=== PATIENT | male | born 1950 | race African-American/Black ===

== ENCOUNTER 2017-08-21 12:01 | Inpatient (IN) | payer MEDICARE, MEDICAID ==
[~2017-08-21] VITALS: Ht 175.3 cm; Wt 106.1 kg
[2017-08-21] VITALS (7 sets, daily range): BP systolic 108–159; BP diastolic 51–90
[~2017-08-21 12:01] MED LIST: ASPIRIN325 MG ORAL; GABAPENTIN400 MG ORAL; IBUPROFEN800 MG ORAL; LOVENOX10 MG SUBQ; MELATONIN3 M2 PO; NORCO 5-325 TA1 EAC1 ORAL; NORCO 5-325 TA1 EACH ORAL; VANCO 1.251.25 GM/25 IV; ZOSYN 3.373.375 GM/1 IVPB
[2017-08-21] MEDS ORDERED: Morphine Sulfate 4mg/ml Inj IVP ONE (12:30)
[2017-08-21 13:05] LABS: HEMATOCRIT 38.6 % (42.0-52.0); HEMOGLOBIN 13.1 G/DL (14.2-18.0); MEAN CORPUSCULAR VOLUME 91 FL (80-99); PLATELET COUNT 203 K/UL (150-450); RED BLOOD COUNT 4.22 M/UL (4.70-6.10); RED CELL DISTRIBUTION WIDTH 13.4 % (11.6-14.8); WHITE BLOOD COUNT 23.1 K/UL (4.8-10.8)
[2017-08-21] MEDS ORDERED: Vancomycin 1 GM in D5W 275 ML IVPB ONE (13:15)
[2017-08-21 13:19] LABS: APPEARANCE,URINE CLEAR; BILIRUBIN, URINE NEGATIVE (NEGATIVE); GLUCOSE, URINE (UA) NEGATIVE (NEGATIVE); KETONES,URINE NEGATIVE (NEGATIVE); LEUKOCYTE ESTERASE ,URINE 1+ (NEGATIVE); NITRITE,URINE NEGATIVE (NEGATIVE); PH,URINE 5 (4.5-8.0); PROTEIN,URINE NEGATIVE (NEGATIVE); UROBILINOGEN,URINE 4 MG/DL (0.0-1.0)
[2017-08-21 13:26] LABS: COLOR,URINE YELLOW
[2017-08-21 13:31] LABS: ANION GAP 10 mmol/L (5-15); BLOOD UREA NITROGEN 26 mg/dL (7-18); CALCIUM 9.8 MG/DL (8.5-10.1); CARBON DIOXIDE 25 MMOL/L (21-32); CHLORIDE 101 MMOL/L (98-107); CREATININE 1.5 MG/DL (0.55-1.30); POTASSIUM 4.4 MMOL/L (3.5-5.1); SODIUM 136 MMOL/L (136-145)
[2017-08-21] MEDS ORDERED: Vancomycin 1gm inj IVPB ONE (13:51)
[2017-08-21 13:55] LABS: ALANINE AMINOTRANSFERASE 52 U/L (12-78); ALBUMIN/GLOBULIN RATIO 0.9 (1.0-2.7); ALKALINE PHOSPHATASE 88 U/L (46-116); ASPARTATE AMINO TRANSFERASE 45 U/L (15-37); BILIRUBIN,TOTAL 1.5 MG/DL (0.2-1.0); CREATINE KINASE 333 U/L (26-308)
[2017-08-21 13:56] LABS: BILIRUBIN,DIRECT 0.3 MG/DL (0.0-0.3)
[2017-08-21] MEDS ORDERED: HYDROmorphone 1mg/ml Carpuject IVP ONE (14:45)
[2017-08-21] MEDS ORDERED: Cefepime HCl 1 GM in D5W 55 ML IVPB ONE (14:45)
--- NOTE | 2017-08-21 15:37 | Emergency Room Report ---
History of Present Illness General Chief Complaint: Fever Source: Patient, EMS Present Illness HPI Patient presents with fever. Minimal cough yesterday but saw the phlegm but did not note color. In addition he has severe right ankle pain post titanium placement for an ankle fracture. 9/10, constant, worse when ankle dependent, radiates slightly to mid lower leg, aching. He denies any changes in the skin at this time. Also denies nausea vomiting diarrhea or dysuria. Apparently has had cellulitis in R lower leg in the past. No ANAND, sore throat, abdominal pain, chest pain. Allergies: Coded Allergies: No Known Allergies (Unverified , 12/24/15) Patient History Past Medical History: see triage record Past Surgical History: other - R ankle surgery Social History: Reports: smoking Social History Narrative at assisted living/rehab Reviewed Nursing Documentation: PMH: Agreed, PSxH: Agreed Nursing Documentation-PMH Hx Cardiac Problems: No Hx Cancer: No Hx Gastrointestinal Problems: No Review of Systems All Other Systems: negative except mentioned in HPI Physical Exam Vital Signs Date Time Temp Pulse Resp B/P (MAP) Pulse Ox O2 Delivery O2 Flow Rate FiO2 08/21/17 11:54 98.8 100 16 110/74 94 Room Air Sp02 EP Interpretation: reviewed, abnormal - interpreted as low by me General Appearance: well appearing, no apparent distress, GCS 15 Head: normocephalic Eyes: bilateral eye normal inspection, bilateral eye PERRL ENT: moist mucus membranes Neck: supple, no bony tend Respiratory: lungs clear, normal breath sounds Cardiovascular #1: regular rate, rhythm Cardiovascular #2: 2+ radial (R) Gastrointestinal: normal inspection, normal bowel sounds, non tender, no mass, non-distended Musculoskeletal: back normal, swelling - R ankle-post surgical changes Neurologic: alert, oriented x3, 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 Ddx: pneumonia, bronchitis, cellulitis, osteomyelitis amongst others. Evaluation with EKG, CXR, R ankle x-rays, labs. Treatment with hydration and consideration for antibiotics based on results. Treated for pain. EKG without injury. CXR no infiltrate. WBC elevated. ESR elevated. Renal insufficiency. Normal lactate. IV antibiotics started to cover possible osteo. Repeat pain medicine. Improved with treatment. Needs continued IV antibiotics and evaluation. Admit barry [place] Laboratory Tests Test 08/21/17 12:35 08/21/17 12:55 White Blood Count 23.1 K/UL (4.8-10.8) *H Red Blood Count 4.22 M/UL (4.70-6.10) L Hemoglobin 13.1 G/DL (14.2-18.0) L Hematocrit 38.6 % (42.0-52.0) L Mean Corpuscular Volume 91 FL (80-99) Mean Corpuscular Hemoglobin 31.1 PG (27.0-31.0) H Mean Corpuscular Hemoglobin Concent 34.0 G/DL (32.0-36.0) Red Cell Distribution Width 13.4 % (11.6-14.8) Platelet Count 203 K/UL (150-450) Mean Platelet Volume 8.8 FL (6.5-10.1) Neutrophils (%) (Auto) % (45.0-75.0) Lymphocytes (%) (Auto) % (20.0-45.0) Monocytes (%) (Auto) % (1.0-10.0) Eosinophils (%) (Auto) % (0.0-3.0) Basophils (%) (Auto) % (0.0-2.0) Differential Total Cells Counted 100 Neutrophils % (Manual) 80 % (45-75) H Lymphocytes % (Manual) 10 % (20-45) L Monocytes % (Manual) 9 % (1-10) Eosinophils % (Manual) 1 % (0-3) Basophils % (Manual) 0 % (0-2) Band Neutrophils 0 % (0-8) Platelet Estimate Adequate Platelet Morphology Normal Red Blood Cell Morphology Normal Erythrocyte Sedimentation Rate 43 MM/HR (0-20) H Prothrombin Time 10.9 SEC (9.30-11.50) Prothrombin Time INR 1.0 (0.9-1.1) PTT 29 SEC (23-33) Urine Color Yellow Urine Appearance Clear Urine pH 5 (4.5-8.0) Urine Specific [place] 1.015 (1.005-1.035) Urine Protein Negative (NEGATIVE) Urine Glucose (UA) Negative (NEGATIVE) Urine Ketones Negative (NEGATIVE) Urine Occult Blood 1+ (NEGATIVE) H Urine Nitrite Negative (NEGATIVE) Urine Bilirubin Negative (NEGATIVE) Urine Urobilinogen 4 MG/DL (0.0-1.0) H Urine Leukocyte Esterase 1+ (NEGATIVE) H Urine RBC 2-4 /HPF (0 - 0) H Urine WBC 2-4 /HPF (0 - 0) Urine Squamous Epithelial Cells Occasional /LPF Urine Bacteria Occasional /HPF (NONE) Sodium Level 136 MMOL/L (136-145) Potassium Level 4.4 MMOL/L (3.5-5.1) Chloride Level 101 MMOL/L (98-107) Carbon Dioxide Level 25 MMOL/L (21-32) Anion Gap 10 mmol/L (5-15) Blood Urea Nitrogen 26 mg/dL (7-18) H Creatinine 1.5 MG/DL (0.55-1.30) H Estimate Glomerular Filtration Rate 57.1 mL/min (>60) Glucose Level 123 MG/DL (74-106) H Calcium Level 9.8 MG/DL (8.5-10.1) Magnesium Level 1.7 MG/DL (1.8-2.4) L Total Bilirubin 1.5 MG/DL (0.2-1.0) H Direct Bilirubin 0.3 MG/DL (0.0-0.3) Aspartate Amino Transferase (AST) 45 U/L (15-37) H Alanine Aminotransferase (ALT) 52 U/L (12-78) Alkaline Phosphatase 88 U/L (46-116) Total Creatine Kinase 333 U/L (26-308) H Troponin I 0.000 ng/mL (0.000-0.056) Pro-B-Type Natriuretic Peptide 193 pg/mL (0-125) H Total Protein 8.3 G/DL (6.4-8.2) H Albumin 4.0 G/DL (3.4-5.0) Globulin 4.3 g/dL Albumin/Globulin Ratio 0.9 (1.0-2.7) L Lactic Acid Level 1.60 mmol/L (0.66-2.22) EKG Diagnostic Results Rate: normal Rhythm: NSR Rhythm Strip Diag. Results EP Interpretation: yes Rhythm: NSR, no PVC's, no ectopy Chest X-Ray Diagnostic Results Chest X-Ray Diagnostic Results : Chest X-Ray Ordered: Yes # of Views/Limited/Complete: 1 View Indication: Other Interpretation: no consolidation, no effusion, no pneumothorax, no acute cardiopulmonary disease Impression: No acute disease Electronically Signed by: Electronically signed by Bryce Ramos MD Other X-Ray Diagnostic Results Other X-Ray Diagnostic Results : # of Views/Limited Vs Complete: 3 View Indication: Pain EP Interpretation: Yes Interpretation: other - STS, bone changes, titanium Impression: Other Electronically Signed by: Bryce Ramos MD Last Vital Signs Date Time Temp Pulse Resp B/P (MAP) Pulse Ox O2 Delivery O2 Flow Rate FiO2 08/21/17 15:00 100.0 95 26 125/90 97 Room Air Status: improved Disposition: ADMITTED INPATIENT Condition: Serious Referrals: BENJY KUMARI (PCP) Bryce Ramos M.D. Aug 21, 2017 15:37
[2017-08-21] MEDS ORDERED: Nitroglycerin Subl 0.4mg tab SL PRN (16:30)
[2017-08-21] MEDS ORDERED: Albuterol/Ipratropium 3ml neb HHN PRN (16:30)
[2017-08-21] MEDS: Cefepime HCl 2 GM in NS 110 ML IV SCH (18:49)
[2017-08-21 21:13] LABS: CREATINE KINASE 345 U/L (26-308)
[2017-08-21] MEDS: Heparin 5000 units/ml inj SUBQ SCH (21:42)
[2017-08-21 22:15] LABS: APPEARANCE,URINE CLOUDY; BILIRUBIN, URINE NEGATIVE (NEGATIVE); GLUCOSE, URINE (UA) NEGATIVE (NEGATIVE); KETONES,URINE NEGATIVE (NEGATIVE); LEUKOCYTE ESTERASE ,URINE 1+ (NEGATIVE); NITRITE,URINE NEGATIVE (NEGATIVE); PH,URINE 5 (4.5-8.0); PROTEIN,URINE 1+ (NEGATIVE); UROBILINOGEN,URINE 4 MG/DL (0.0-1.0)
[2017-08-21 22:21] LABS: COLOR,URINE AMBER
[2017-08-22] VITALS: BP 134/51
[2017-08-22] MEDS ORDERED: Vancomycin 1 GM in D5W 275 ML IV SCH (00:30)
[2017-08-22] MEDS: Norco 5mg/325mg tab ORAL PRN (01:53)
[2017-08-22] MEDS: Vancomycin 1250mg/D5W 250ml 250 ML IVPB SCH ×2 (01:57→13:41)
[2017-08-22 04:00] VITALS: BP 110/58
[2017-08-22] MEDS: Cefepime HCl 2 GM in NS 110 ML IV SCH ×2 (05:26→18:44)
[2017-08-22 08:07] LABS: HEMATOCRIT 33.7 % (42.0-52.0); HEMOGLOBIN 11.5 G/DL (14.2-18.0); MEAN CORPUSCULAR VOLUME 93 FL (80-99); PLATELET COUNT 180 K/UL (150-450); RED BLOOD COUNT 3.61 M/UL (4.70-6.10); RED CELL DISTRIBUTION WIDTH 13.5 % (11.6-14.8)
[2017-08-22 08:13] LABS: WHITE BLOOD COUNT 22.5 K/UL (4.8-10.8)
[2017-08-22 08:21] LABS: ALANINE AMINOTRANSFERASE 44 U/L (12-78); ALBUMIN 3.6 G/DL (3.4-5.0); ALBUMIN/GLOBULIN RATIO 0.9 (1.0-2.7); ALKALINE PHOSPHATASE 91 U/L (46-116); ANION GAP 9 mmol/L (5-15); ASPARTATE AMINO TRANSFERASE 27 U/L (15-37); BILIRUBIN,TOTAL 1.5 MG/DL (0.2-1.0); BLOOD UREA NITROGEN 23 mg/dL (7-18); CALCIUM 9.3 MG/DL (8.5-10.1); CARBON DIOXIDE 25 MMOL/L (21-32); CHLORIDE 102 MMOL/L (98-107); CREATININE 1.7 MG/DL (0.55-1.30); POTASSIUM 4.2 MMOL/L (3.5-5.1); SODIUM 136 MMOL/L (136-145)
[2017-08-22 08:23] LABS: BILIRUBIN,DIRECT 0.6 MG/DL (0.0-0.3)
[2017-08-22 09:00] VITALS: BP 116/68
[2017-08-22] MEDS: Heparin 5000 units/ml inj SUBQ SCH ×2 (09:00→22:01)
--- NOTE | 2017-08-22 09:41 | Diagnostic Imaging Report ---
Indication: Cough Technique: One view of the chest Comparison: none Findings: Body habitus somewhat limits evaluation. No definite acute infiltrates, effusions, or congestion. Heart size is upper limits of normal. Aorta is tortuous. Impression: No acute process
--- NOTE | 2017-08-22 10:51 | Diagnostic Imaging Report ---
Indication: Pain Technique: 3 views of the right ankle Comparison: none Findings: Surgical hardware is seen reducing distal tibial fracture. The distal fragments are markedly osteoporotic, and there is no definite evidence of bony union. The surgical hardware extends into the talus, apparently fusing the tibia and the talus. There is nonetheless considerable deformity of the talus and possible fracture, with possible impaction of the superior aspect of the calcaneus. There is a fracture of the distal fibular diaphysis. This is slightly angulated. There is surrounding callus but fracture line persists. The bones of the foot are profoundly osteoporotic. There is a bridging osteophyte between the tibia and the talus Impression: Post surgical changes, as described Extensive abnormality of the distal tibia, with marked osteoporotic change, persistent fracture lines in possible bone loss. 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 There are multiple screw holes within the metatarsals. Correlate with clinical findings. Associated incompletely united distal fibular fracture. Evidence of prior foot surgery This agrees with the preliminary interpretation provided by the emergency room physician
[2017-08-22] MEDS: Morphine Sulfate 4mg/ml Inj IVP PRN (11:25)
[2017-08-22 11:47] VITALS: BP 143/79
[2017-08-22 13:19] LABS: BILIRUBIN, URINE NEGATIVE (NEGATIVE); GLUCOSE, URINE (UA) NEGATIVE (NEGATIVE); KETONES,URINE NEGATIVE (NEGATIVE); LEUKOCYTE ESTERASE ,URINE NEGATIVE (NEGATIVE); NITRITE,URINE NEGATIVE (NEGATIVE); PH,URINE 5 (4.5-8.0); PROTEIN,URINE 2+ (NEGATIVE); UROBILINOGEN,URINE 4 MG/DL (0.0-1.0)
[2017-08-22 13:37] LABS: APPEARANCE,URINE CLEAR; COLOR,URINE YELLOW
--- NOTE | 2017-08-22 13:40 | Consultation ---
History of Present Illness General Date patient seen: Aug 22, 2017 Time patient seen: 13:38 Chief Complaint: Fever Present Illness HPI 66 y/o M with hx of DVT, polyneuropathy, R ankle surgery presents to ED on 08/21 with fever/ chilss and worsening R ankle pain. OF note R ankle fracture s/p repair with titanium about 2 years ago at [facility]. Stil receiving PT. refers R ankle is more sensitive but now more pain. Developed fevers and chills 2 days prior to admission. No open wounds or drainage.. Denies n/v, diarrhea, dysuria, sore throat, ANAND, CP, abd pain. Febrile up to 101.7. Leukocytosis up to 22.5 Bacteremic with GPC clusters. Allergies: Coded Allergies: No Known Allergies (Unverified , 12/24/15) Medication History Scheduled Aspirin* (Aspirin*), 325 MG ORAL DAILY, (Reported) Enoxaparin* (Lovenox*), 40 MG SUBQ DAILY, (Reported) Gabapentin* (Gabapentin*), 400 MG ORAL TWICE A DAY, (Reported) Ibuprofen* (Motrin*), 800 MG ORAL EVERY 4 HOURS, (Reported) Melatonin (Melatonin), 3 MG PO BEDTIME, (Reported) Ugtvoxnnljfv-Jgvz-Mjgdrnzk,Iso (Zosyn 3.375 Gm Pre Mix-Bag), 3.375 GM IVPB EVERY 8 HOURS Vancomycin/0.9 % Sod Chloride (Vanco 1.25 gm/250 ml-0.9% NaCl), 1.25 GM IV EVERY 12 HOURS Scheduled PRN Hydrocodone Bit/Acetaminophen 5-325* (Harmony 5-325 Tablet*), 1 TAB ORAL Q4H PRN for For Pain, (Reported) Hydrocodone Bit/Acetaminophen 5-325* (Harmony 5-325*), 1 TAB ORAL Q6H PRN for For Pain, (Reported) Patient History Healthcare decision maker Resuscitation status Advanced Directive on File Review of Systems All Other Systems: negative except mentioned in HPI Physical Exam Physical Exam Narrative General Appearance: well appearing, no apparent distress Head: normocephalic Eyes: bilateral eye normal inspection, bilateral eye PERRL ENT: moist mucus membranes Neck: supple, no bony tend Respiratory: lungs clear, normal breath sounds Cardiovascular : regular rate, rhythm Gastrointestinal: normal inspection, normal bowel sounds, non tender, no mass, non-distended Musculoskeletal: back normal, swelling - R ankle with deformity, +swelling, warmth, mild erythema and TTP, no opening wounds Skin: warm/dry, Last 24 Hour Vital Signs Date Time Temp Pulse Resp B/P (MAP) Pulse Ox O2 Delivery O2 Flow Rate FiO2 08/22/17 12:23 100.6 08/22/17 11:55 101.7 08/22/17 11:47 101.7 109 20 143/79 96 08/22/17 09:00 97.9 96 19 116/68 94 08/22/17 08:00 93 20 Room Air 21 08/22/17 04:00 101.8 99 20 110/58 93 08/22/17 00:00 100.0 95 19 134/51 93 08/21/17 20:00 102.6 109 19 112/65 91 08/21/17 16:00 100.9 100 20 159/70 97 08/21/17 15:30 100.0 95 26 125/90 97 Room Air 08/21/17 15:00 100.0 95 26 125/90 97 Room Air 08/21/17 14:02 99.8 08/21/17 14:00 99.2 92 18 118/57 99 Room Air Intake and Output 08/21/17 08/22/17 19:00 07:00 Intake Total 1240 ml 406.667 ml Output Total 100 ml 550 ml Balance 1140 ml -143.333 ml Intake Oral 240 ml 240 ml IV Total 1000 ml 166.667 ml Output Urine Total 100 ml 550 ml # Voids 1 # Bowel Movements 1 Laboratory Tests Test 08/21/17 22:00 08/22/17 05:40 08/22/17 12:20 Urine Color [place] Yellow Urine Appearance Cloudy Clear Urine pH 5 (4.5-8.0) 5 (4.5-8.0) Urine Specific [place] 1.015 (1.005-1.035) 1.020 (1.005-1.035) Urine Protein 1+ (NEGATIVE) H 2+ (NEGATIVE) H Urine Glucose (UA) Negative (NEGATIVE) Negative (NEGATIVE) Urine Ketones Negative (NEGATIVE) Negative (NEGATIVE) Urine Occult Blood 1+ (NEGATIVE) H 2+ (NEGATIVE) H Urine Nitrite Negative (NEGATIVE) Negative (NEGATIVE) Urine Bilirubin Negative (NEGATIVE) Negative (NEGATIVE) Urine Ictotest Negative Urine Urobilinogen 4 MG/DL (0.0-1.0) H 4 MG/DL (0.0-1.0) H Urine Leukocyte Esterase 1+ (NEGATIVE) H Negative (NEGATIVE) Urine RBC 2-4 /HPF (0 - 0) H Pending Urine WBC 5-10 /HPF (0 - 0) H Pending Urine Squamous Epithelial Cells Occasional /LPF Pending Urine Bacteria Few /HPF (NONE) Pending Urine Mucus Few /LPF (NONE/OCC) H Urine Eosinophils None seen Urine Random Sodium 41 MEQ/L (20-110) Urine Potassium Timed 85 mmol/L (12-62) H White Blood Count 22.5 K/UL (4.8-10.8) *H Red Blood Count 3.61 M/UL (4.70-6.10) L Hemoglobin 11.5 G/DL (14.2-18.0) L Hematocrit 33.7 % (42.0-52.0) L Mean Corpuscular Volume 93 FL (80-99) Mean Corpuscular Hemoglobin 31.9 PG (27.0-31.0) H Mean Corpuscular Hemoglobin Concent 34.3 G/DL (32.0-36.0) Red Cell Distribution Width 13.5 % (11.6-14.8) Platelet Count 180 K/UL (150-450) Mean Platelet Volume 9.1 FL (6.5-10.1) Neutrophils (%) (Auto) % (45.0-75.0) Lymphocytes (%) (Auto) % (20.0-45.0) Monocytes (%) (Auto) % (1.0-10.0) Eosinophils (%) (Auto) % (0.0-3.0) Basophils (%) (Auto) % (0.0-2.0) Differential Total Cells Counted 100 Neutrophils % (Manual) 85 % (45-75) H Lymphocytes % (Manual) 13 % (20-45) L Monocytes % (Manual) 2 % (1-10) Eosinophils % (Manual) 0 % (0-3) Basophils % (Manual) 0 % (0-2) Band Neutrophils 0 % (0-8) Platelet Estimate Adequate Platelet Morphology Normal Sodium Level 136 MMOL/L (136-145) Potassium Level 4.2 MMOL/L (3.5-5.1) Chloride Level 102 MMOL/L (98-107) Carbon Dioxide Level 25 MMOL/L (21-32) Anion Gap 9 mmol/L (5-15) Blood Urea Nitrogen 23 mg/dL (7-18) H Creatinine 1.7 MG/DL (0.55-1.30) H Estimat Glomerular Filtration Rate 49.4 mL/min (>60) Glucose Level 109 MG/DL (74-106) H Calcium Level 9.3 MG/DL (8.5-10.1) Total Bilirubin 1.5 MG/DL (0.2-1.0) H Direct Bilirubin 0.6 MG/DL (0.0-0.3) H Aspartate Amino Transf (AST/SGOT) 27 U/L (15-37) Alanine Aminotransferase (ALT/SGPT) 44 U/L (12-78) Alkaline Phosphatase 91 U/L (46-116) Total Protein 7.8 G/DL (6.4-8.2) Albumin 3.6 G/DL (3.4-5.0) Globulin 4.2 g/dL Albumin/Globulin Ratio 0.9 (1.0-2.7) L Height (Feet): 5 Height (Inches): 9.00 Weight (Pounds): 234 Medications Current Medications Medications (Trade) Dose Ordered Sig/Iliana Route PRN Reason Start Time Stop Time Status Last Admin Dose Admin Acetaminophen (Tylenol) 650 mg Q4H PRN ORAL fever 08/21/17 16:30 09/20/17 16:29 08/22/17 11:24 Acetaminophen/ Hydrocodone Bitart (Harmony 5/325) 1 tab Q6H PRN ORAL Mild Pain (1-3) 08/21/17 16:30 08/28/17 16:29 08/22/17 01:53 Albuterol/ Ipratropium (Albuterol/ Ipratropium) 3 ml Q4H PRN HHN Shortness of Breath 08/21/17 16:30 08/26/17 16:29 Cefepime HCl 2 gm/ Sodium Chloride 110 ml @ 220 mls/hr Q12HR@0600,1800 IV 08/21/17 18:00 08/28/17 17:59 08/22/17 05:26 Gabapentin (Neurontin) 400 mg TWICE A DAY ORAL 08/21/17 18:00 3/6/18 17:59 08/22/17 09:01 Heparin Sodium (Porcine) (Heparin 5000 units/ml) 5,000 units EVERY 12 HOURS SUBQ 08/21/17 21:00 09/20/17 20:59 08/21/17 21:42 Morphine Sulfate (Morphine Sulfate) 2 mg Q4H PRN IVP Moderate Pain (Pain Scale 4-6) 08/21/17 16:30 08/28/17 16:29 08/22/17 11:25 Nitroglycerin (Ntg) 0.4 mg Every 5 Minutes PRN SL Prn Chest Pain 08/21/17 16:30 09/20/17 16:29 Ondansetron HCl (Zofran) 4 mg Q6H PRN IVP Nausea & Vomiting 08/21/17 16:30 09/20/17 16:29 Polyethylene Glycol (Miralax) 17 gm DAILYPRN PRN ORAL Constipation 08/21/17 16:30 09/20/17 16:29 Temazepam (Restoril) 15 mg HSPRN PRN ORAL Insomnia 08/21/17 16:30 08/28/17 16:29 Vancomycin HCl (Vanco rx to dose) 1 ea DAILYPRN PRN MISC RX TO DOSE PROTOCOL 08/21/17 17:30 09/20/17 17:29 Vancomycin HCl/ Dextrose 250 ml @ 166.667 mls/hr Q12HR@0200,1400 IVPB 08/22/17 02:00 08/27/17 01:59 08/22/17 01:57 Assessment/Plan Assessment/Plan Abx: IV Vanco 08/21- Cefepime 08/21- Flagyl x1 08/21 Assessment: Sepsis 2ry to GPC bacteremia- suspect 2ry to hardware infection Fever/leukocytosis -CXR no acute process R ankle pain, ankle fx s/p repair- r/o OM -xray R ankle: Post surgical changes, as described. Extensive abnormality of the distal tibia, with marked osteoporotic change, persistent fracture lines in possible bone loss. Uncertain to the extent to which this represents postsurgical change with nonunion and disuse osteoporosis, versusunderlying obstructive process such as osteomyelitis. There are multiple screw holes within the metatarsals. Correlate with clinical findings. Associated incompletely united distal fibular fracture. Evidence of prior foot surgery Plan: -Continue IV Cefepime and Vancomycin for now -f/u cx -Monitor CBC/BMP, temperatures Thank you for this consultation. Will continue to follow along with you. Discussed with TERESSA. Susan Browning M.D. Aug 22, 2017 13:39
--- NOTE | 2017-08-22 18:22 | Cardiology Report ---
APPROVED REPORT EKG Measurement Heart [id number] Normal sinus rhythm Normal ECG
--- NOTE | 2017-08-22 18:33 | History and Physical ---
History of Present Illness General Date patient seen: Aug 22, 2017 Reason for Hospitalization: Fever Present Illness HPI 66 year old male with hx of DVT, polyneuropathy, [facility] for fever. oral temp 99.8 upon arrival.. Patient states history of right lower extremity surgery with titanium. Right lower extremity is tender to touch and patient guards area. Swelling noted in the ankle area. Pt is admitted for further evaluation. Pt is admitted for further evaluation Allergies: Coded Allergies: No Known Allergies (Unverified , 12/24/15) Medication History Scheduled Aspirin* (Aspirin*), 325 MG ORAL DAILY, (Reported) Enoxaparin* (Lovenox*), 40 MG SUBQ DAILY, (Reported) Gabapentin* (Gabapentin*), 400 MG ORAL TWICE A DAY, (Reported) Ibuprofen* (Motrin*), 800 MG ORAL EVERY 4 HOURS, (Reported) Melatonin (Melatonin), 3 MG PO BEDTIME, (Reported) Syuhtryuvzlk-Fmvi-Rlcvhdli,Iso (Zosyn 3.375 Gm Pre Mix-Bag), 3.375 GM IVPB EVERY 8 HOURS Vancomycin/0.9 % Sod Chloride (Vanco 1.25 gm/250 ml-0.9% NaCl), 1.25 GM IV EVERY 12 HOURS Scheduled PRN Hydrocodone Bit/Acetaminophen 5-325* ([place] 5-325 Tablet*), 1 TAB ORAL Q4H PRN for For Pain, (Reported) Hydrocodone Bit/Acetaminophen 5-325* ([place] 5-325*), 1 TAB ORAL Q6H PRN for For Pain, (Reported) Patient History Healthcare decision maker Resuscitation status Advanced Directive on File Past Medical/Surgical History Past Medical/Surgical History: (1) DVT (deep venous thrombosis) (2) Wound of right lower extremity (3) Cellulitis Review of Systems Constitutional: Reports: no symptoms Eye: Reports: no symptoms Physical Exam General Appearance: WD/WN Lines, tubes and drains: peripheral HEENT: normocephalic, atraumatic Neck: non-tender, normal alignment Respiratory/Chest: chest wall non-tender, lungs clear Breasts: no masses Cardiovascular/Chest: normal rate Abdomen: normal bowel sounds, non tender Genitourinary/Rectal: normal genital exam, normal prostate exam Extremities: normal range of motion, normal inspection Last 24 Hour Vital Signs Date Time Temp Pulse Resp B/P (MAP) Pulse Ox O2 Delivery O2 Flow Rate FiO2 08/22/17 12:23 100.6 08/22/17 11:55 101.7 08/22/17 11:47 101.7 109 20 143/79 96 08/22/17 09:00 97.9 96 19 116/68 94 08/22/17 08:00 93 20 Room Air 21 08/22/17 04:00 101.8 99 20 110/58 93 08/22/17 00:00 100.0 95 19 134/51 93 08/21/17 20:00 102.6 109 19 112/65 91 Intake and Output 08/21/17 08/22/17 19:00 07:00 Intake Total 1240 ml 406.667 ml Output Total 100 ml 550 ml Balance 1140 ml -143.333 ml Intake Oral 240 ml 240 ml IV Total 1000 ml 166.667 ml Output Urine Total 100 ml 550 ml # Voids 1 # Bowel Movements 1 Laboratory Tests Test 08/21/17 22:00 08/22/17 05:40 08/22/17 12:20 Urine Color Jennifer Yellow Urine Appearance Cloudy Clear Urine pH 5 (4.5-8.0) 5 (4.5-8.0) Urine Specific [place] 1.015 (1.005-1.035) 1.020 (1.005-1.035) Urine Protein 1+ (NEGATIVE) H 2+ (NEGATIVE) H Urine Glucose (UA) Negative (NEGATIVE) Negative (NEGATIVE) Urine Ketones Negative (NEGATIVE) Negative (NEGATIVE) Urine Occult Blood 1+ (NEGATIVE) H 2+ (NEGATIVE) H Urine Nitrite Negative (NEGATIVE) Negative (NEGATIVE) Urine Bilirubin Negative (NEGATIVE) Negative (NEGATIVE) Urine Ictotest Negative Urine Urobilinogen 4 MG/DL (0.0-1.0) H 4 MG/DL (0.0-1.0) H Urine Leukocyte Esterase 1+ (NEGATIVE) H Negative (NEGATIVE) Urine RBC 2-4 /HPF (0 - 0) H 2-4 /HPF (0 - 0) H Urine WBC 5-10 /HPF (0 - 0) H 0-2 /HPF (0 - 0) Urine Squamous Epithelial Cells Occasional /LPF Occasional /LPF Urine Bacteria Few /HPF (NONE) Occasional /HPF (NONE) Urine Mucus Few /LPF (NONE/OCC) H Urine Eosinophils None seen Urine Random Sodium 41 MEQ/L (20-110) Urine Potassium Timed 85 mmol/L (12-62) H White Blood Count 22.5 K/UL (4.8-10.8) *H Red Blood Count 3.61 M/UL (4.70-6.10) L Hemoglobin 11.5 G/DL (14.2-18.0) L Hematocrit 33.7 % (42.0-52.0) L Mean Corpuscular Volume 93 FL (80-99) Mean Corpuscular Hemoglobin 31.9 PG (27.0-31.0) H Mean Corpuscular Hemoglobin Concent 34.3 G/DL (32.0-36.0) Red Cell Distribution Width 13.5 % (11.6-14.8) Platelet Count 180 K/UL (150-450) Mean Platelet Volume 9.1 FL (6.5-10.1) Neutrophils (%) (Auto) % (45.0-75.0) Lymphocytes (%) (Auto) % (20.0-45.0) Monocytes (%) (Auto) % (1.0-10.0) Eosinophils (%) (Auto) % (0.0-3.0) Basophils (%) (Auto) % (0.0-2.0) Differential Total Cells Counted 100 Neutrophils % (Manual) 85 % (45-75) H Lymphocytes % (Manual) 13 % (20-45) L Monocytes % (Manual) 2 % (1-10) Eosinophils % (Manual) 0 % (0-3) Basophils % (Manual) 0 % (0-2) Band Neutrophils 0 % (0-8) Platelet Estimate Adequate Platelet Morphology Normal Sodium Level 136 MMOL/L (136-145) Potassium Level 4.2 MMOL/L (3.5-5.1) Chloride Level 102 MMOL/L (98-107) Carbon Dioxide Level 25 MMOL/L (21-32) Anion Gap 9 mmol/L (5-15) Blood Urea Nitrogen 23 mg/dL (7-18) H Creatinine 1.7 MG/DL (0.55-1.30) H Estimat Glomerular Filtration Rate 49.4 mL/min (>60) Glucose Level 109 MG/DL (74-106) H Calcium Level 9.3 MG/DL (8.5-10.1) Total Bilirubin 1.5 MG/DL (0.2-1.0) H Direct Bilirubin 0.6 MG/DL (0.0-0.3) H Aspartate Amino Transf (AST/SGOT) 27 U/L (15-37) Alanine Aminotransferase (ALT/SGPT) 44 U/L (12-78) Alkaline Phosphatase 91 U/L (46-116) Total Protein 7.8 G/DL (6.4-8.2) Albumin 3.6 G/DL (3.4-5.0) Globulin 4.2 g/dL Albumin/Globulin Ratio 0.9 (1.0-2.7) L Microbiology Date/Time Source Procedure Growth Status 08/22/17 15:15 Nasopharynx Influenza Types A,B Antigen (ONDINA) - Final Complete Height (Feet): 5 Height (Inches): 9.00 Weight (Pounds): 234 Medications Current Medications Medications (Trade) Dose Ordered Sig/Iliana Route PRN Reason Start Time Stop Time Status Last Admin Dose Admin Acetaminophen (Tylenol) 650 mg Q4H PRN ORAL fever 08/21/17 16:30 09/20/17 16:29 08/22/17 11:24 Acetaminophen/ Hydrocodone Bitart ([place] 5/325) 1 tab Q6H PRN ORAL Mild Pain (1-3) 08/21/17 16:30 08/28/17 16:29 08/22/17 01:53 Albuterol/ Ipratropium (Albuterol/ Ipratropium) 3 ml Q4H PRN HHN Shortness of Breath 08/21/17 16:30 08/26/17 16:29 Cefepime HCl 2 gm/ Sodium Chloride 110 ml @ 220 mls/hr Q12HR@0600,1800 IV 08/21/17 18:00 08/28/17 17:59 08/22/17 05:26 Gabapentin (Neurontin) 400 mg TWICE A DAY ORAL 08/21/17 18:00 09/20/17 17:59 08/22/17 09:01 Heparin Sodium (Porcine) (Heparin 5000 units/ml) 5,000 units EVERY 12 HOURS SUBQ 08/21/17 21:00 09/20/17 20:59 08/21/17 21:42 Morphine Sulfate (Morphine Sulfate) 2 mg Q4H PRN IVP Moderate Pain (Pain Scale 4-6) 08/21/17 16:30 08/28/17 16:29 08/22/17 11:25 Nitroglycerin (Ntg) 0.4 mg Every 5 Minutes PRN SL Prn Chest Pain 08/21/17 16:30 09/20/17 16:29 Ondansetron HCl (Zofran) 4 mg Q6H PRN IVP Nausea & Vomiting 08/21/17 16:30 09/20/17 16:29 Polyethylene Glycol (Miralax) 17 gm DAILYPRN PRN ORAL Constipation 08/21/17 16:30 09/20/17 16:29 Temazepam (Restoril) 15 mg HSPRN PRN ORAL Insomnia 08/21/17 16:30 08/28/17 16:29 Vancomycin HCl (Vanco rx to dose) 1 ea DAILYPRN PRN MISC RX TO DOSE PROTOCOL 08/21/17 17:30 09/20/17 17:29 Vancomycin HCl/ Dextrose 250 ml @ 166.667 mls/hr Q12HR@0200,1400 IVPB 08/22/17 02:00 08/27/17 01:59 08/22/17 13:41 Assessment/Plan Problem List: (1) Sepsis ICD Codes: A41.9 - Sepsis, unspecified organism SNOMED: [id number] Qualifiers: Qualified Codes: A41.9 - Sepsis, unspecified organism (2) Cellulitis ICD Codes: L03.90 - Cellulitis, unspecified SNOMED: 693715095 (3) Leukocytosis ICD Codes: D72.829 - Elevated white blood cell count, unspecified SNOMED: 546648951, 991822269 Qualifiers: Qualified Codes: D72.828 - Other elevated white blood cell count (4) DVT (deep venous thrombosis) ICD Codes: I82.409 - Acute embolism and thrombosis of unspecified deep veins of unspecified lower extremity SNOMED: 662416788 Assessment/Plan reed culture iv abx doppler of legs check labs BENJY KUMARI Aug 22, 2017 18:33
[2017-08-22] MEDS: Miralax 17gm pkt ORAL PRN (19:08)
[2017-08-22] MEDS ORDERED: NS 275ml ONE (19:34)
[2017-08-22] MEDS ORDERED: Tubing IV Secondary IV ONE (19:34)
[2017-08-22 19:39] VITALS: BP 118/69
[2017-08-22 23:43] VITALS: BP 124/76
[2017-08-23] MEDS: Vancomycin 1250mg/D5W 250ml 250 ML IVPB SCH ×3 (02:00→18:25)
[2017-08-23 03:44] VITALS: BP 131/80
[2017-08-23] MEDS: Cefepime HCl 2 GM in NS 110 ML IV SCH ×2 (05:29→18:22)
[2017-08-23 08:14] VITALS: BP 133/83
[2017-08-23] MEDS: Heparin 5000 units/ml inj SUBQ SCH ×2 (08:33→21:28)
[2017-08-23] MEDS: Norco 5mg/325mg tab ORAL PRN ×2 (08:33→18:21)
--- NOTE | 2017-08-23 08:58 | Diagnostic Imaging Report ---
Indication: Abnormal renal function tests Technique: Grayscale and duplex images of the kidneys, retroperitoneum, and bladder were obtained. Comparison: none Findings: Exam is somewhat limited, due to overlying bowel gas, patient body habitus, and inability to turn patient. Right kidney measures 10.7 cm in length. Left kidney measures 7 cm in length. Both kidneys demonstrate normal echogenicity. No hydronephrosis. No focal abnormality. Normal inferior vena cava. Bladder is nearly empty. The liver is diffusely hyperechoic, consistent with hepatocellular disease, most likely fatty change Impression: Limited exam. Negative for hydronephrosis. Incidental finding of likely fatty liver
--- NOTE | 2017-08-23 11:13 | Infectious Diseases Prog Note ---
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 Extensive abnormality of the distal tibia, with marked osteoporotic change, persistent fracture lines in possible bone loss. 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 There are multiple screw holes within the metatarsals. Correlate with clinical findings. Associated incompletely united distal fibular fracture. Evidence of prior foot surgery Plan: -Continue IV Vancomycin #3 for MRSA bacteremia and hardware infection -vanco through 15-20 -d/c Cefepime #3 -Bone scan R leg -discussed with radiologist- chose bone scan over CT and MRI given hardware and potential for metallic artifact impairing interpretation. Can proceed with Indium scan afterwards if bone scan non-diagnostic -Ortho evaluation -may need hardware removal and possible transfer to [facility] where hardware was implanted. -f/u cx -Monitor CBC/BMP, temperatures Thank you for this consultation. Will continue to follow along with you. Discussed with RN, Dr Malloy and Dr Kaye (radiology) Subjective Allergies: Coded Allergies: No Known Allergies (Unverified , 12/24/15) Subjective Tm 102.2 leukocytosis persistent, mildly improved MRSA bacteremia Objective Vital Signs Last 24 Hour Vital Signs Date Time Temp Pulse Resp B/P (MAP) Pulse Ox O2 Delivery O2 Flow Rate FiO2 08/23/17 09:35 98.4 08/23/17 08:14 98.4 86 20 133/83 96 08/23/17 05:09 98.8 08/23/17 03:44 102.2 94 20 131/80 95 Room Air 08/22/17 23:43 99.1 93 20 124/76 98 Room Air 08/22/17 20:26 88 20 Room Air 21 08/22/17 19:39 101.5 100 20 118/69 99 Room Air 2/5/18 11:55 101.7 08/22/17 11:47 101.7 109 20 143/79 96 Height (Feet): 5 Height (Inches): 9.00 Weight (Pounds): 234 Objective General Appearance: well appearing, no apparent distress Head: normocephalic Eyes: bilateral eye normal inspection, bilateral eye PERRL ENT: moist mucus membranes Neck: supple, no bony tend Respiratory: lungs clear, normal breath sounds Cardiovascular : regular rate, rhythm Gastrointestinal: normal inspection, normal bowel sounds, non tender, no mass, non-distended Musculoskeletal: back normal, swelling - R ankle with deformity, +swelling, warmth, mild erythema and TTP, no opening wounds Skin: warm/dry, Microbiology Date/Time Source Procedure Growth Status 08/21/17 12:35 Blood Blood Culture - Preliminary Staphylococcus Aureus Resulted 08/21/17 12:25 Blood Blood Culture - Preliminary NO GROWTH AFTER 24 HOURS Resulted 08/22/17 15:15 Nasopharynx Influenza Types A,B Antigen (ONDINA) - Final Complete 08/22/17 12:20 Sputum Gram Stain Pending Resulted 08/22/17 12:20 Sputum Sputum Culture - Preliminary Resulted 08/21/17 14:50 Nasal Nares MRSA Culture - Final Staphylococcus Aureus - Mrsa Complete 08/22/17 00:00 Indwelling Cath Urine Culture - Preliminary NO GROWTH Resulted 08/21/17 14:50 Rectum VRE Culture - Final NO VANCOMYCIN RESISTANT ENTEROCOCCUS ... Complete Laboratory Tests Test 08/22/17 12:20 08/23/17 05:55 Urine Color Yellow Urine Appearance Clear Urine pH 5 (4.5-8.0) Urine Specific [place] 1.020 (1.005-1.035) Urine Protein 2+ (NEGATIVE) H Urine Glucose (UA) Negative (NEGATIVE) Urine Ketones Negative (NEGATIVE) Urine Occult Blood 2+ (NEGATIVE) H Urine Nitrite Negative (NEGATIVE) Urine Bilirubin Negative (NEGATIVE) Urine Urobilinogen 4 MG/DL (0.0-1.0) H Urine Leukocyte Esterase Negative (NEGATIVE) Urine RBC 2-4 /HPF (0 - 0) H Urine WBC 0-2 /HPF (0 - 0) Urine Squamous Epithelial Cells Occasional /LPF Urine Bacteria Occasional /HPF (NONE) Vancomycin Level Trough 8.3 ug/mL (5.0-12.0) Current Medications Medications (Trade) Dose Ordered Sig/Iliana Route PRN Reason Start Time Stop Time Status Last Admin Dose Admin Acetaminophen (Tylenol) 650 mg Q4H PRN ORAL fever 08/21/17 16:30 09/20/17 16:29 08/23/17 04:10 Acetaminophen/ Hydrocodone Bitart ([place] 5/325) 1 tab Q6H PRN ORAL Mild Pain (1-3) 08/21/17 16:30 08/28/17 16:29 08/23/17 08:33 Albuterol/ Ipratropium (Albuterol/ Ipratropium) 3 ml Q4H PRN HHN Shortness of Breath 08/21/17 16:30 08/26/17 16:29 Cefepime HCl 2 gm/ Sodium Chloride 110 ml @ 220 mls/hr Q12HR@0600,1800 IV 08/21/17 18:00 08/28/17 17:59 08/23/17 05:29 Gabapentin (Neurontin) 400 mg TWICE A DAY ORAL 08/21/17 18:00 09/20/17 17:59 08/23/17 08:32 Heparin Sodium (Porcine) (Heparin 5000 units/ml) 5,000 units EVERY 12 HOURS SUBQ 08/21/17 21:00 09/20/17 20:59 08/22/17 22:01 Morphine Sulfate (Morphine Sulfate) 2 mg Q4H PRN IVP Moderate Pain (Pain Scale 4-6) 08/21/17 16:30 08/28/17 16:29 08/22/17 11:25 Nitroglycerin (Ntg) 0.4 mg Every 5 Minutes PRN SL Prn Chest Pain 08/21/17 16:30 09/20/17 16:29 Ondansetron HCl (Zofran) 4 mg Q6H PRN IVP Nausea & Vomiting 08/21/17 16:30 09/20/17 16:29 Polyethylene Glycol (Miralax) 17 gm DAILYPRN PRN ORAL Constipation 08/21/17 16:30 09/20/17 16:29 08/22/17 19:08 Temazepam (Restoril) 15 mg HSPRN PRN ORAL Insomnia 08/21/17 16:30 08/28/17 16:29 Vancomycin HCl (Vanco rx to dose) 1 ea DAILYPRN PRN MISC RX TO DOSE PROTOCOL 08/21/17 17:30 09/20/17 17:29 Vancomycin HCl/ Dextrose 250 ml @ 166.667 mls/hr Q12HR@0700,1900 IVPB 08/23/17 07:00 08/28/17 06:59 08/23/17 08:35 Susan Browning M.D. Aug 23, 2017 11:13
[2017-08-23 11:34] VITALS: BP 123/74
[2017-08-23 15:52] VITALS: BP 135/76
--- NOTE | 2017-08-23 18:35 | Cardiology Report ---
APPROVED REPORT EXAM: Two-dimensional and M-mode echocardiogram with Doppler and color Doppler. INDICATION Other M-Mode DIMENSIONS IVSd0.9 (0.7-1.1cm)Left Atrium (MM)3.5 (1.6-4.0cm) LVDd4.8 (3.5-5.6cm)Aortic Root3.3 (2.0-3.7cm) PWd1.0 (0.7-1.1cm)Aortic Cusp Exc.2.0 (1.5-2.0cm) LVDs2.6 (2.5-4.0cm) PWs1.2 cm Normal left ventricular chamber size, systolic function and wall motion. Left ventricular ejection fraction estimated to be 60-65%. No evidence of left ventricular hypertrophy. Small anterior pericardial effusion. Right cardiac chamber sizes are within normal limits. Mild left atrial enlargement by 2D. Focal aortic valve sclerosis with adequate cusp excursion. Thickened mitral valve leaflets with normal excursion. Mild mitral annulus and aortic root calcification. Pulmonic valve not well visualized. Normal tricuspid valve structure. IVC is not obtainable. A color flow and spectral Doppler study was performed and revealed: No aortic regurgitation. No mitral regurgitation. Mitral diastolic velocities suggest reduced left ventricular relaxation c/w diastolic dysfunction grade 1. No tricuspid regurgitation.
--- NOTE | 2017-08-23 19:36 | Pulmonology Progress Note ---
Assessment/Plan Problems: (1) Sepsis (2) Cellulitis (3) Leukocytosis (4) DVT (deep venous thrombosis) Assessment/Plan iv abx check cultures bone scan ortho called, hematology to see for hx of dvt Subjective ROS Limited/Unobtainable: No Constitutional: Reports: no symptoms HEENT: Repors: no symptoms Respiratory: Reports: no symptoms Allergies: Coded Allergies: No Known Allergies (Unverified , 12/24/15) Objective Last 24 Hour Vital Signs Date Time Temp Pulse Resp B/P (MAP) Pulse Ox O2 Delivery O2 Flow Rate FiO2 08/23/17 16:29 99.0 08/23/17 15:52 100.0 91 20 135/76 96 08/23/17 11:34 98.8 91 20 123/74 95 08/23/17 11:11 89 20 Room Air 21 08/23/17 09:35 98.4 08/23/17 08:14 98.4 86 20 133/83 96 08/23/17 03:44 102.2 94 20 131/80 95 Room Air 08/22/17 23:43 99.1 93 20 124/76 98 Room Air 08/22/17 20:26 88 20 Room Air 21 08/22/17 19:39 101.5 100 20 118/69 99 Room Air Intake and Output 08/22/17 08/23/17 19:00 07:00 Intake Total 360 ml 110 ml Output Total 300 ml Balance 60 ml 110 ml Intake Oral 360 ml IV Total 110 ml Output Urine Total 300 ml # Voids 3 2 # Bowel Movements 1 General Appearance: WD/WN HEENT: normocephalic, atraumatic Respiratory/Chest: chest wall non-tender, lungs clear Cardiovascular: normal peripheral pulses, normal rate Genitourinary: normal external genitalia Extremities: no clubbing 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, abnormal gait Microbiology Date/Time Source Procedure Growth Status 08/21/17 12:35 Blood Blood Culture - Preliminary Staphylococcus Aureus Resulted 08/21/17 12:25 Blood Blood Culture - Preliminary NO GROWTH AFTER 24 HOURS Resulted 08/22/17 15:15 Nasopharynx Influenza Types A,B Antigen (ONDINA) - Final Complete 08/22/17 12:20 Sputum Gram Stain - Final Resulted 08/22/17 12:20 Sputum Sputum Culture - Preliminary Resulted 08/21/17 14:50 Nasal Nares MRSA Culture - Final Staphylococcus Aureus - Mrsa Complete 08/22/17 00:00 Indwelling Cath Urine Culture - Preliminary NO GROWTH Resulted 08/21/17 14:50 Rectum VRE Culture - Final NO VANCOMYCIN RESISTANT ENTEROCOCCUS ... Complete Laboratory Tests 08/23/17 05:55: Vancomycin Level Trough 8.3 Current Medications Medications (Trade) Dose Ordered Sig/Iliana Route PRN Reason Start Time Stop Time Status Last Admin Dose Admin Acetaminophen (Tylenol) 650 mg Q4H PRN ORAL fever 08/21/17 16:30 09/20/17 16:29 08/23/17 15:30 Acetaminophen/ Hydrocodone Bitart ([place] 5/325) 1 tab Q6H PRN ORAL Mild Pain (1-3) 08/21/17 16:30 08/28/17 16:29 08/23/17 18:21 Albuterol/ Ipratropium (Albuterol/ Ipratropium) 3 ml Q4H PRN HHN Shortness of Breath 08/21/17 16:30 08/26/17 16:29 Gabapentin (Neurontin) 400 mg TWICE A DAY ORAL 08/21/17 18:00 09/20/17 17:59 08/23/17 18:21 Heparin Sodium (Porcine) (Heparin 5000 units/ml) 5,000 units EVERY 12 HOURS SUBQ 08/21/17 21:00 09/20/17 20:59 08/22/17 22:01 Morphine Sulfate (Morphine Sulfate) 2 mg Q4H PRN IVP Moderate Pain (Pain Scale 4-6) 08/21/17 16:30 08/28/17 16:29 08/22/17 11:25 Nitroglycerin (Ntg) 0.4 mg Every 5 Minutes PRN SL Prn Chest Pain 08/21/17 16:30 09/20/17 16:29 Ondansetron HCl (Zofran) 4 mg Q6H PRN IVP Nausea & Vomiting 08/21/17 16:30 09/20/17 16:29 Polyethylene Glycol (Miralax) 17 gm DAILYPRN PRN ORAL Constipation 08/21/17 16:30 09/20/17 16:29 08/22/17 19:08 Temazepam (Restoril) 15 mg HSPRN PRN ORAL Insomnia 08/21/17 16:30 08/28/17 16:29 Vancomycin HCl (Vanco rx to dose) 1 ea DAILYPRN PRN MISC RX TO DOSE PROTOCOL 08/21/17 17:30 09/20/17 17:29 Vancomycin HCl/ Dextrose 250 ml @ 166.667 mls/hr Q12HR@0700,1900 IVPB 08/23/17 07:00 08/28/17 06:59 08/23/17 18:25 BENJY KUMARI Aug 23, 2017 19:36
[2017-08-23 19:43] VITALS: BP 115/77
[2017-08-23 20:07] LABS: CREATINE KINASE 265 U/L (26-308)
[2017-08-23 23:25] LABS: APPEARANCE,URINE CLEAR; BILIRUBIN, URINE NEGATIVE (NEGATIVE); GLUCOSE, URINE (UA) NEGATIVE (NEGATIVE); KETONES,URINE NEGATIVE (NEGATIVE); LEUKOCYTE ESTERASE ,URINE 1+ (NEGATIVE); NITRITE,URINE NEGATIVE (NEGATIVE); PH,URINE 6 (4.5-8.0); PROTEIN,URINE 3+ (NEGATIVE); UROBILINOGEN,URINE 8 MG/DL (0.0-1.0)
[2017-08-23 23:50] LABS: COLOR,URINE YELLOW
[2017-08-23 23:57] VITALS: BP 121/76
[2017-08-24 03:41] VITALS: BP 105/74
[2017-08-24] MEDS: Vancomycin 1250mg/D5W 250ml 250 ML IVPB SCH (07:26)
[2017-08-24 08:00] VITALS: BP 137/82
--- NOTE | 2017-08-24 08:15 | Consultation ---
DATE OF CONSULTATION: 08/22/2017 HEMATOLOGY/ONCOLOGY CONSULTATION CONSULTING PHYSICIAN: Benedicto Rutherford M.D. REQUESTING PHYSICIAN: Julianne Malloy M.D. REASON FOR CONSULTATION: Evaluation of DVT. IDENTIFICATION DATA: Dear Dr. Malloy, The patient is a pleasant 66-year-old male with past medical history significant of polyneuropathy and DVT, brought in by EMS with fevers and temperature 99.8 degrees Fahrenheit upon arrival, history of right lower extremity surgery with titanium, right lower extremity tender to touch, swollen, admitted for further evaluation. The patient admitted and Hematology service consulted for evaluation of DVT. PAST MEDICAL HISTORY: As noted above, DVT and polyneuropathy, brought in by ambulance. ALLERGIES: No known drug allergies. MEDICATIONS: Aspirin, Norvasc, Neurontin, ibuprofen, vancomycin. REVIEW OF SYSTEMS: CONSTITUTIONAL: No fevers, chills, or night sweats. SKIN: No rashes, bumps, or itching. HEENT: No headache, hearing or vision changes. BREASTS: No lumps, pain, or discharge. PULMONARY: No cough, sputum, or shortness of breath. GASTROINTESTINAL: No nausea, vomiting, or diarrhea. GENITOURINARY: No dysuria, frequency, or urgency. MUSCULOSKELETAL: No joint swelling, muscle pain, or trauma. PHYSICAL EXAMINATION: VITAL SIGNS: Reviewed. GENERAL: No acute distress. PULMONARY: Decreased breath sounds. CARDIOVASCULAR: Regular rate. No S3 or S4. ABDOMEN: Soft, nontender, and nondistended. EXTREMITIES: There is 1+ edema. LABORATORY AND DIAGNOSTIC DATA: WBC 23,000, hemoglobin 11.5, platelet 180,000. INR of 1. BUN of 22, creatinine 1.7, improved. Urinalysis reviewed, positive for UTI. Imaging, ankle x-ray completed and shows no acute process. ASSESSMENT AND RECOMMENDATIONS: 1. Deep venous thrombosis of the right lower extremity. The patient at this time is on heparin subcutaneously doses. Obtain duplex of lower extremity. Most recent scan in 2016 negative for DVT. We will order venous duplex. 2. Leukocytosis, likely secondary to Gram-positive bacteremia, currently on broad-spectrum antibiotics. 3. Right ankle fracture, status post repair. 4. Polyneuropathy. 5. Fever, likely related to underlying sepsis. Continue to closely monitor. . Thank you for the consultation. Benedicto Rutherford M.D. DR: Baron JOB#: [id number] CC:
[2017-08-24] MEDS: Heparin 5000 units/ml inj SUBQ SCH ×3 (08:41→20:49)
[2017-08-24 12:00] VITALS: BP 127/95
--- NOTE | 2017-08-24 14:31 | Diagnostic Imaging Report ---
Indication: Right lower leg cellulitis, history of ankle fracture repair x2 years Technique: IV administration of 25.4 mCi 99M technetium MDP. Flow, blood pool, static images obtained over the ankles Comparison: Plain radiographs of 08/21/2017 Findings: There is markedly increased flow activity in the right lower extremity as compared to the left, particularly in the distal ankle and in the hindfoot but also in the more proximal visualized portion of the leg. Level images demonstrate similarly increased activity, predominantly in the ankle and hindfoot but also more proximal. The static images demonstrate markedly increased activity involving the distal tibia and talus, as well as less extensive but definitely increased activity extending more cephalad along the tibial shaft. There is equivocally minimally increased activity in the distal fibula at the level of the fracture deformity demonstrated on on the recent plain radiographs, but this area is not well visualized. Impression: Markedly abnormal flow, blood pool, and static activity predominantly involving the distal right tibia and talus but also to some extent the proximal tibia. Findings are concerning for acute osteomyelitis and presumably associated hardware infection, particularly in view of the abnormal plain radiographic findings
[2017-08-24 16:00] VITALS: BP 130/75
--- NOTE | 2017-08-24 16:32 | Infectious Diseases Prog Note ---
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 Thickened mitral valve leaflets with normal excursion. Mild mitral annulus and aortic root calcification. -Bone scan: Markedly abnormal flow, blood pool, and static activity predominantly involving the distal right tibia and talus but also to some extent the proximal tibia. Findings are concerning for acute osteomyelitis and presumably associated hardware infection, particularly in view of the abnormal plain radiographic findings Fever/leukocytosis -influenza screen neg -CXR no acute process -sp cx normal laurie to date R ankle pain, ankle fx s/p repair~2yrs ago -xray R ankle: Post surgical changes, as described. Extensive abnormality of the distal tibia, with marked osteoporotic change, persistent fracture lines in possible bone loss. 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 There are multiple screw holes within the metatarsals. Correlate with clinical findings. Associated incompletely united distal fibular fracture. Evidence of prior foot surgery Plan: -Switch IV Vancomycin #4 to Daptomycin 8mg/kg qd for MRSA bacteremia and hardware infection given patient not cooperating with blood draws and difficult to monitor vanco levels and Cr -CPK -2/6 SP Cefepime #3 -2/4 SP Flagyl x1 -Ortho evaluation- -will need hardware removal given bacteremia -- possible transfer to [facility] where hardware was implanted. -f/u cx -Monitor CBC/BMP, temperatures; will attempt labs and Bcx tomorrow am Thank you for this consultation. Will continue to follow along with you. Discussed with RN Subjective Allergies: Coded Allergies: No Known Allergies (Unverified , 12/24/15) Subjective continues to be febrile Tm 102 still bacteremic refusing blood draws possible transfer to [facility] Objective Vital Signs Last 24 Hour Vital Signs Date Time Temp Pulse Resp B/P (MAP) Pulse Ox O2 Delivery O2 Flow Rate FiO2 08/24/17 12:50 99.5 08/24/17 12:36 99.5 08/24/17 12:00 100.4 83 20 127/95 95 2/7/18 08:19 78 20 Room Air 21 08/24/17 08:00 98.4 83 20 137/82 98 08/24/17 03:41 98.6 78 20 105/74 93 Room Air 08/23/17 23:57 102.0 89 20 121/76 95 Room Air 08/23/17 20:36 85 20 Room Air 21 08/23/17 19:43 99.1 81 20 115/77 93 Room Air 08/23/17 19:20 99.0 Height (Feet): 5 Height (Inches): 9.00 Weight (Pounds): 234 Objective General Appearance: well appearing, no apparent distress Head: normocephalic Eyes: bilateral eye normal inspection, bilateral eye PERRL ENT: moist mucus membranes Neck: supple, no bony tend Respiratory: lungs clear, normal breath sounds Cardiovascular : regular rate, rhythm Gastrointestinal: normal inspection, normal bowel sounds, non tender, no mass, non-distended Musculoskeletal: back normal, swelling - R ankle with deformity, +swelling, warmth, mild erythema and TTP, no opening wounds Skin: warm/dry, Microbiology Date/Time Source Procedure Growth Status 08/23/17 05:55 Blood Blood Culture - Preliminary Resulted 08/22/17 15:15 Nasopharynx Influenza Types A,B Antigen (CORY) - Final Complete 08/22/17 12:20 Sputum Gram Stain - Final Resulted 08/22/17 12:20 Sputum Sputum Culture - Preliminary NORMAL UPPER RESPIRATORY LAURIE AT 24 ... Resulted 08/22/17 00:00 Indwelling Cath Urine Culture - Preliminary NO GROWTH AFTER 24 HOURS Resulted Laboratory Tests Test 08/23/17 22:40 Urine Color Yellow Urine Appearance Clear Urine pH 6 (4.5-8.0) Urine Specific [place] 1.015 (1.005-1.035) Urine Protein 3+ (NEGATIVE) H Urine Glucose (UA) Negative (NEGATIVE) Urine Ketones Negative (NEGATIVE) Urine Occult Blood 2+ (NEGATIVE) H Urine Nitrite Negative (NEGATIVE) Urine Bilirubin Negative (NEGATIVE) Urine Urobilinogen 8 MG/DL (0.0-1.0) H Urine Leukocyte Esterase 1+ (NEGATIVE) H Urine RBC 2-4 /HPF (0 - 0) H Urine WBC 2-4 /HPF (0 - 0) Urine Squamous Epithelial Cells None /LPF (NONE/OCC) Urine Bacteria Few /HPF (NONE) Urine Coarse Granular Casts 0-2 /LPF (NONE) H Urine Eosinophils None seen Urine Random Sodium 92 MEQ/L (20-110) Urine Potassium Timed 21 mmol/L (12-62) Current Medications Medications (Trade) Dose Ordered Sig/Iliana Route PRN Reason Start Time Stop Time Status Last Admin Dose Admin Acetaminophen (Tylenol) 650 mg Q4H PRN ORAL fever 08/21/17 16:30 09/20/17 16:29 08/24/17 11:37 Acetaminophen/ Hydrocodone Bitart ([place] 5/325) 1 tab Q6H PRN ORAL Mild Pain (1-3) 08/21/17 16:30 08/28/17 16:29 08/23/17 18:21 Albuterol/ Ipratropium (Albuterol/ Ipratropium) 3 ml Q4H PRN HHN Shortness of Breath 08/21/17 16:30 08/26/17 16:29 Gabapentin (Neurontin) 400 mg TWICE A DAY ORAL 08/21/17 18:00 09/20/17 17:59 08/24/17 08:40 Heparin Sodium (Porcine) (Heparin 5000 units/ml) 5,000 units EVERY 12 HOURS SUBQ 08/21/17 21:00 09/20/17 20:59 08/23/17 21:28 Morphine Sulfate (Morphine Sulfate) 2 mg Q4H PRN IVP Moderate Pain (Pain Scale 4-6) 08/21/17 16:30 08/28/17 16:29 08/22/17 11:25 Nitroglycerin (Ntg) 0.4 mg Every 5 Minutes PRN SL Prn Chest Pain 08/21/17 16:30 09/20/17 16:29 Ondansetron HCl (Zofran) 4 mg Q6H PRN IVP Nausea & Vomiting 08/21/17 16:30 09/20/17 16:29 Polyethylene Glycol (Miralax) 17 gm DAILYPRN PRN ORAL Constipation 08/21/17 16:30 09/20/17 16:29 08/22/17 19:08 Temazepam (Restoril) 15 mg HSPRN PRN ORAL Insomnia 08/21/17 16:30 08/28/17 16:29 Vancomycin HCl (Vanco rx to dose) 1 ea DAILYPRN PRN MISC RX TO DOSE PROTOCOL 08/21/17 17:30 09/20/17 17:29 Vancomycin HCl/ Dextrose 250 ml @ 125 mls/hr Q12HR@0700,1900 IVPB 08/24/17 19:00 08/29/17 18:59 Susan Browning M.D. Aug 24, 2017 16:32
--- NOTE | 2017-08-24 17:12 | Pulmonology Progress Note ---
Assessment/Plan Problems: (1) Sepsis (2) Cellulitis (3) Leukocytosis (4) DVT (deep venous thrombosis) Assessment/Plan iv abx check cultures bone scan in process ortho called, hematology to see for hx of dvt discussed with the [facility] team taking care of the patient. He needs to be transferred to [facility] for evaluation by his orthopedis. Subjective ROS Limited/Unobtainable: No Constitutional: Reports: no symptoms HEENT: Repors: no symptoms Respiratory: Reports: no symptoms Allergies: Coded Allergies: No Known Allergies (Unverified , 12/24/15) Objective Last 24 Hour Vital Signs Date Time Temp Pulse Resp B/P (MAP) Pulse Ox O2 Delivery O2 Flow Rate FiO2 08/24/17 16:00 99.5 83 20 130/75 98 08/24/17 12:50 99.5 08/24/17 12:36 99.5 08/24/17 12:00 100.4 83 20 127/95 95 08/24/17 08:19 78 20 Room Air 21 08/24/17 08:00 98.4 83 20 137/82 98 08/24/17 03:41 98.6 78 20 105/74 93 Room Air 08/23/17 23:57 102.0 89 20 121/76 95 Room Air 08/23/17 20:36 85 20 Room Air 21 08/23/17 19:43 99.1 81 20 115/77 93 Room Air 08/23/17 19:20 99.0 Intake and Output 08/23/17 08/24/17 19:00 07:00 Intake Total 1100 ml 250.000 ml Output Total 450 ml 350 ml Balance 650 ml -100.000 ml Intake Oral 1100 ml IV Total 250.000 ml Output Urine Total 450 ml 350 ml # Voids 3 5 # Bowel Movements 1 Objective General Appearance: WD/WN HEENT: normocephalic, atraumatic Respiratory/Chest: chest wall non-tender, lungs clear Cardiovascular: normal peripheral pulses, normal rate Genitourinary: normal external genitalia Extremities: no clubbing 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 Resulted 08/22/17 00:00 Indwelling Cath Urine Culture - Preliminary NO GROWTH AFTER 24 HOURS Resulted Laboratory Tests 08/23/17 22:40: Urine Color Yellow, Urine Appearance Clear, Urine pH 6, Urine Specific [place] 1.015, Urine Protein 3+H, Urine Glucose (UA) Negative, Urine Ketones Negative, Urine Occult Blood 2+H, Urine Nitrite Negative, Urine Bilirubin Negative, Urine Urobilinogen 8H, Urine Leukocyte Esterase 1+H, Urine RBC 2-4H, Urine WBC 2-4, Urine Squamous Epithelial Cells None, Urine Bacteria Few, Urine Coarse Granular Casts 0-2H, Urine Eosinophils None seen, Urine Random Sodium 92, Urine Potassium Timed 21 Current Medications Medications (Trade) Dose Ordered Sig/Iliana Route PRN Reason Start Time Stop Time Status Last Admin Dose Admin Acetaminophen (Tylenol) 650 mg Q4H PRN ORAL fever 08/21/17 16:30 09/20/17 16:29 08/24/17 11:37 Acetaminophen/ Hydrocodone Bitart ([place] 5/325) 1 tab Q6H PRN ORAL Mild Pain (1-3) 08/21/17 16:30 08/28/17 16:29 08/23/17 18:21 Albuterol/ Ipratropium (Albuterol/ Ipratropium) 3 ml Q4H PRN HHN Shortness of Breath 08/21/17 16:30 08/26/17 16:29 Daptomycin 850 mg/ Sodium Chloride 55 ml @ 100 mls/hr Q24H IV 08/24/17 18:00 08/31/17 17:59 Gabapentin (Neurontin) 400 mg TWICE A DAY ORAL 08/21/17 18:00 09/20/17 17:59 08/24/17 08:40 Heparin Sodium (Porcine) (Heparin 5000 units/ml) 5,000 units EVERY 12 HOURS SUBQ 08/21/17 21:00 09/20/17 20:59 08/23/17 21:28 Morphine Sulfate (Morphine Sulfate) 2 mg Q4H PRN IVP Moderate Pain (Pain Scale 4-6) 08/21/17 16:30 08/28/17 16:29 08/22/17 11:25 Nitroglycerin (Ntg) 0.4 mg Every 5 Minutes PRN SL Prn Chest Pain 08/21/17 16:30 09/20/17 16:29 Ondansetron HCl (Zofran) 4 mg Q6H PRN IVP Nausea & Vomiting 08/21/17 16:30 09/20/17 16:29 Polyethylene Glycol (Miralax) 17 gm DAILYPRN PRN ORAL Constipation 08/21/17 16:30 09/20/17 16:29 08/22/17 19:08 Temazepam (Restoril) 15 mg HSPRN PRN ORAL Insomnia 08/21/17 16:30 08/28/17 16:29 BENJY KUMARI Aug 24, 2017 17:12
[2017-08-24] MEDS: DAPTOMYCIN IV SCH (18:35)
[2017-08-24] MEDS: NS IV SCH (18:35)
[2017-08-24] MEDS ORDERED: Vancomycin 1.5 GM/D5W 250ML IVPB SCH (19:00)
[2017-08-24 19:06] LABS: BASOPHILS % (AUTO) 0.9 % (0.0-2.0); EOSINOPHILS % (AUTO) 0.6 % (0.0-3.0); HEMATOCRIT 32.4 % (42.0-52.0); HEMOGLOBIN 10.9 G/DL (14.2-18.0); LYMPHOCYTES % (AUTO) 9.6 % (20.0-45.0); MEAN CORPUSCULAR VOLUME 92 FL (80-99); MONOCYTES % (AUTO) 6.8 % (1.0-10.0); NEUTROPHILS % (AUTO) 82.1 % (45.0-75.0); PLATELET COUNT 258 K/UL (150-450); RED BLOOD COUNT 3.54 M/UL (4.70-6.10); RED CELL DISTRIBUTION WIDTH 12.9 % (11.6-14.8); WHITE BLOOD COUNT 17.6 K/UL (4.8-10.8)
[2017-08-24 19:30] LABS: ALANINE AMINOTRANSFERASE 59 U/L (12-78); ALBUMIN 3.1 G/DL (3.4-5.0); ALBUMIN/GLOBULIN RATIO 0.7 (1.0-2.7); ALKALINE PHOSPHATASE 107 U/L (46-116); ANION GAP 11 mmol/L (5-15); ASPARTATE AMINO TRANSFERASE 50 U/L (15-37); BILIRUBIN,TOTAL 0.9 MG/DL (0.2-1.0); BLOOD UREA NITROGEN 20 mg/dL (7-18); CALCIUM 9.7 MG/DL (8.5-10.1); CARBON DIOXIDE 24 MMOL/L (21-32); CHLORIDE 101 MMOL/L (98-107); CREATININE 1.3 MG/DL (0.55-1.30); PHOSPHORUS 2.9 MG/DL (2.5-4.9); POTASSIUM 3.6 MMOL/L (3.5-5.1); SODIUM 136 MMOL/L (136-145)
[2017-08-24 20:00] VITALS: BP 95/63
--- NOTE | 2017-08-24 23:50 | General Progress Note ---
Assessment/Plan Assessment/Plan 1. Deep venous thrombosis of the right lower extremity. --> The patient at this time is on heparin subcutaneously doses. --. Obtain duplex of lower extremity. --> Most recent scan in 2016 negative for DVT. --> We will order venous duplex. --> INR goal b/t 2 and 3. 2. Leukocytosis, likely secondary to Gram-positive bacteremia, --> currently on broad-spectrum antibiotics. 3. Right ankle fracture, status post repair. 4. Polyneuropathy. 5. Fever, likely related to underlying sepsis. --> Continue to closely monitor. Subjective Date patient seen: Aug 23, 2017 Constitutional: Denies: no symptoms, chills, diaphoresis, fever, malaise, weakness, other HEENT: Denies: no symptoms, eye pain, blurred vision, tearing, double vision, ear pain, ear discharge, nose pain, nose congestion, throat pain, throat swelling, mouth pain, mouth swelling, other Cardiovascular: Denies: no symptoms, chest pain, edema, irregular heart rate, lightheadedness, palpitations, syncope, other Respiratory: Denies: no symptoms, cough, orthopnea, shortness of breath, SOB with excertion, SOB at rest, sputum, stridor, wheezing, other Gastrointestinal/Abdominal: Denies: no symptoms, abdomen distended, abdominal pain, black stools, tarry stools, blood in stool, constipated, diarrhea, difficulty swallowing, nausea, poor appetite, poor fluid intake, rectal bleeding , vomiting, other Genitourinary: Denies: no symptoms, burning, discharge, frequency, flank pain, hematuria, incontinence, pain, urgency, other Neurologic/Psychiatric: Denies: no symptoms, anxiety, depressed, emotional problems, headache, numbness, paresthesia, pre-existing deficit, seizure, tingling, tremors, weakness, other Allergies: Coded Allergies: No Known Allergies (Unverified , 12/24/15) Subjective S/P bone scan. Septic. Leukocytosis. Objective Last 24 Hour Vital Signs Date Time Temp Pulse Resp B/P (MAP) Pulse Ox O2 Delivery O2 Flow Rate FiO2 08/24/17 20:00 97.4 79 19 95/63 98 08/24/17 16:00 99.5 83 20 130/75 98 08/24/17 12:50 99.5 08/24/17 12:36 99.5 08/24/17 12:00 100.4 83 20 127/95 95 08/24/17 08:19 78 20 Room Air 21 08/24/17 08:00 98.4 83 20 137/82 98 08/24/17 03:41 98.6 78 20 105/74 93 Room Air 08/23/17 23:57 102.0 89 20 121/76 95 Room Air Intake and Output 08/23/17 08/24/17 19:00 07:00 Intake Total 1100 ml 250.000 ml Output Total 450 ml 350 ml Balance 650 ml -100.000 ml Intake Oral 1100 ml IV Total 250.000 ml Output Urine Total 450 ml 350 ml # Voids 3 5 # Bowel Movements 1 Laboratory Tests 08/24/17 18:35: White Blood Count 17.6H, Red Blood Count 3.54L, Hemoglobin 10.9L, Hematocrit 32.4L, Mean Corpuscular Volume 92, Mean Corpuscular Hemoglobin 30.7, Mean Corpuscular Hemoglobin Concent 33.5, Red Cell Distribution Width 12.9, Platelet Count 258, Mean Platelet Volume 8.1, Neutrophils (%) (Auto) 82.1H, Lymphocytes ( %) (Auto) 9.6L, Monocytes (%) (Auto) 6.8, Eosinophils (%) (Auto) 0.6, Basophils (%) (Auto) 0.9, Erythrocyte Sedimentation Rate 109H, Sodium Level 136, Potassium Level 3.6, Chloride Level 101, Carbon Dioxide Level 24, Anion Gap 11, Blood Urea Nitrogen 20H, Creatinine 1.3, Estimat Glomerular Filtration Rate > 60 , Glucose Level 118H, Calcium Level 9.7, Phosphorus Level 2.9, Magnesium Level 2.2, Total Bilirubin 0.9, Aspartate Amino Transf (AST/SGOT) 50H, Alanine Aminotransferase (ALT/SGPT) 59, Alkaline Phosphatase 107, C-Reactive Protein, Quantitative 69.2H, Total Protein 7.8, Albumin 3.1L, Globulin 4.7, Albumin/ Globulin Ratio 0.7L Height (Feet): 5 Height (Inches): 9.00 Weight (Pounds): 234 Benedicto Rutherford Aug 24, 2017 23:50
--- NOTE | 2017-08-24 23:52 | General Progress Note ---
Assessment/Plan Assessment/Plan 1. Deep venous thrombosis of the right lower extremity. --> The patient at this time is on heparin subcutaneously doses. --. Obtain duplex of lower extremity. --> Most recent scan in 2016 negative for DVT. --> Venous duplex lower ext pending. --> INR goal b/t 2 and 3. 2. Leukocytosis, likely secondary to Gram-positive bacteremia, --> currently on broad-spectrum antibiotics. --> Improved from yesterday. --> Trend cbc daily. 3. Right ankle fracture, status post repair. --> S/P bone scan revealing abnormal blood flow in right lower ext. Concern for acute osteomyelitis and infection. 4. Polyneuropathy. 5. Fever, likely related to underlying sepsis. --> Continue to closely monitor. Subjective Date patient seen: Aug 24, 2017 Constitutional: Denies: no symptoms, chills, diaphoresis, fever, malaise, weakness, other HEENT: Denies: no symptoms, eye pain, blurred vision, tearing, double vision, ear pain, ear discharge, nose pain, nose congestion, throat pain, throat swelling, mouth pain, mouth swelling, other Cardiovascular: Denies: no symptoms, chest pain, edema, irregular heart rate, lightheadedness, palpitations, syncope, other Respiratory: Denies: no symptoms, cough, orthopnea, shortness of breath, SOB with excertion, SOB at rest, sputum, stridor, wheezing, other Gastrointestinal/Abdominal: Denies: no symptoms, abdomen distended, abdominal pain, black stools, tarry stools, blood in stool, constipated, diarrhea, difficulty swallowing, nausea, poor appetite, poor fluid intake, rectal bleeding , vomiting, other Genitourinary: Denies: no symptoms, burning, discharge, frequency, flank pain, hematuria, incontinence, pain, urgency, other Allergies: Coded Allergies: No Known Allergies (Unverified , 12/24/15) Subjective Leukocytosis improved. Low-grade fever. Objective Last 24 Hour Vital Signs Date Time Temp Pulse Resp B/P (MAP) Pulse Ox O2 Delivery O2 Flow Rate FiO2 08/24/17 20:00 97.4 79 19 95/63 98 08/24/17 16:00 99.5 83 20 130/75 98 08/24/17 12:50 99.5 08/24/17 12:36 99.5 08/24/17 12:00 100.4 83 20 127/95 95 08/24/17 08:19 78 20 Room Air 21 08/24/17 08:00 98.4 83 20 137/82 98 08/24/17 03:41 98.6 78 20 105/74 93 Room Air 08/23/17 23:57 102.0 89 20 121/76 95 Room Air Intake and Output 08/23/17 08/24/17 19:00 07:00 Intake Total 1100 ml 250.000 ml Output Total 450 ml 350 ml Balance 650 ml -100.000 ml Intake Oral 1100 ml IV Total 250.000 ml Output Urine Total 450 ml 350 ml # Voids 3 5 # Bowel Movements 1 Laboratory Tests 08/24/17 18:35: White Blood Count 17.6H, Red Blood Count 3.54L, Hemoglobin 10.9L, Hematocrit 32.4L, Mean Corpuscular Volume 92, Mean Corpuscular Hemoglobin 30.7, Mean Corpuscular Hemoglobin Concent 33.5, Red Cell Distribution Width 12.9, Platelet Count 258, Mean Platelet Volume 8.1, Neutrophils (%) (Auto) 82.1H, Lymphocytes ( %) (Auto) 9.6L, Monocytes (%) (Auto) 6.8, Eosinophils (%) (Auto) 0.6, Basophils (%) (Auto) 0.9, Erythrocyte Sedimentation Rate 109H, Sodium Level 136, Potassium Level 3.6, Chloride Level 101, Carbon Dioxide Level 24, Anion Gap 11, Blood Urea Nitrogen 20H, Creatinine 1.3, Estimat Glomerular Filtration Rate > 60 , Glucose Level 118H, Calcium Level 9.7, Phosphorus Level 2.9, Magnesium Level 2.2, Total Bilirubin 0.9, Aspartate Amino Transf (AST/SGOT) 50H, Alanine Aminotransferase (ALT/SGPT) 59, Alkaline Phosphatase 107, C-Reactive Protein, Quantitative 69.2H, Total Protein 7.8, Albumin 3.1L, Globulin 4.7, Albumin/ Globulin Ratio 0.7L Height (Feet): 5 Height (Inches): 9.00 Weight (Pounds): 234 Benedicto Rutherford Aug 24, 2017 23:52
[2017-08-24 23:56] VITALS: BP 123/68
--- NOTE | 2017-08-25 00:16 | Consultation ---
DATE OF CONSULTATION: 08/24/2017 ORTHOPEDIC CONSULTATION CONSULTING PHYSICIAN: Hesham Gudino M.D. REQUESTING PHYSICIAN: Julianne Malloy M.D. CHIEF COMPLAINT: Right ankle pain and swelling. HISTORY OF PRESENT ILLNESS: The patient is a 66-year-old gentleman with a complicated medical history regarding his lower extremity. He underwent a surgery I believe for the lower ankle at [facility] by Dr. Allen, ultimately became infected, underwent ankle arthrodesis. The patient was now admitted with swelling and pain. PAST MEDICAL HISTORY: Reviewed from the intake chart. PAST SURGICAL HISTORY: Reviewed from the intake chart. MEDICATIONS: Reviewed from the intake chart. PHYSICAL EXAMINATION: Examination shows incisions are clean, dry, and intact. There is no swelling on the anterior medial aspect of the left leg, appears to be may be old skin graft site in place IMAGING STUDIES: Show a tibiotalar fusion with a intramedullary nail. There is some osteolysis along the medial malleolus. ASSESSMENT: Status post talotibial fusion for chronic infection. DISCUSSION: At this point, the patient has chronic infection. I am not sure if the fusion site is completely fused, loose based on the x-rays appears to be. The body has some degree of chronic infection or osteomyelitis. I am not sure if he is a good candidate for any additional treatment. At this point, he had a bone scan, which was positive. He is set to be transferred to [facility] for further evaluation by Dr. Allen, who performed the initial surgery. At this point, there is no acute intervention that needs to be performed. Hesham Gudino M.D. DR: Saida JOB#: [id number] CC:
[2017-08-25] MEDS: Norco 5mg/325mg tab ORAL PRN ×2 (00:34→17:26)
[2017-08-25 04:00] VITALS: BP 123/77
[2017-08-25 08:37] LABS: ALANINE AMINOTRANSFERASE 62 U/L (12-78); ALBUMIN 2.9 G/DL (3.4-5.0); ALBUMIN/GLOBULIN RATIO 0.6 (1.0-2.7); ALKALINE PHOSPHATASE 113 U/L (46-116); ANION GAP 9 mmol/L (5-15); ASPARTATE AMINO TRANSFERASE 54 U/L (15-37); BILIRUBIN,TOTAL 0.7 MG/DL (0.2-1.0); BLOOD UREA NITROGEN 21 mg/dL (7-18); CALCIUM 9.3 MG/DL (8.5-10.1); CARBON DIOXIDE 25 MMOL/L (21-32); CHLORIDE 102 MMOL/L (98-107); CREATINE KINASE 235 U/L (26-308); CREATININE 1.4 MG/DL (0.55-1.30); POTASSIUM 3.4 MMOL/L (3.5-5.1); SODIUM 136 MMOL/L (136-145)
[2017-08-25 08:46] LABS: BASOPHILS % (AUTO) 0.9 % (0.0-2.0); EOSINOPHILS % (AUTO) 0.9 % (0.0-3.0); HEMATOCRIT 32.3 % (42.0-52.0); HEMOGLOBIN 10.9 G/DL (14.2-18.0); LYMPHOCYTES % (AUTO) 14.8 % (20.0-45.0); MEAN CORPUSCULAR VOLUME 93 FL (80-99); NEUTROPHILS % (AUTO) 75.4 % (45.0-75.0); PLATELET COUNT 267 K/UL (150-450); RED BLOOD COUNT 3.47 M/UL (4.70-6.10); RED CELL DISTRIBUTION WIDTH 13.3 % (11.6-14.8); WHITE BLOOD COUNT 16.2 K/UL (4.8-10.8)
[2017-08-25 08:59] VITALS: BP 114/71
[2017-08-25] MEDS: Heparin 5000 units/ml inj SUBQ SCH ×2 (09:09→20:40)
[2017-08-25 12:00] VITALS: BP 119/76
[2017-08-25] MEDS: Miralax 17gm pkt ORAL PRN (12:33)
[2017-08-25 16:09] VITALS: BP 129/78
[2017-08-25] MEDS: DAPTOMYCIN IV SCH (18:12)
[2017-08-25] MEDS: NS IV SCH (18:12)
--- NOTE | 2017-08-25 18:45 | Pulmonology Progress Note ---
Assessment/Plan Problems: (1) Sepsis (2) Cellulitis (3) Leukocytosis (4) DVT (deep venous thrombosis) Assessment/Plan iv abx check cultures bone scan in process ortho called, hematology to see for hx of dvt no new complains, waiting to be transferred to discussed with the [facility] team taking care of the patient. He needs to be transferred to [facility] for evaluation by his orthopedis. Subjective ROS Limited/Unobtainable: No Interval Events: comfortable Allergies: Coded Allergies: No Known Allergies (Unverified , 12/24/15) Objective Last 24 Hour Vital Signs Date Time Temp Pulse Resp B/P (MAP) Pulse Ox O2 Delivery O2 Flow Rate FiO2 08/25/17 16:09 98.4 85 20 129/78 96 08/25/17 14:19 89 18 Room Air 21 08/25/17 12:00 97.7 82 20 119/76 95 08/25/17 08:59 97.7 72 20 114/71 96 08/25/17 04:00 98.1 77 19 123/77 96 08/25/17 01:33 97.6 08/24/17 23:56 97.6 79 19 123/68 97 08/24/17 20:00 97.4 79 19 95/63 98 08/24/17 19:10 81 18 Room Air 21 Intake and Output 08/24/17 08/25/17 19:00 07:00 Intake Total 180 ml 240 ml Output Total 800 ml 400 ml Balance -620 ml -160 ml Intake Oral 180 ml 240 ml Output Urine Total 800 ml 400 ml Objective General Appearance: WD/WN HEENT: normocephalic, atraumatic Respiratory/Chest: chest wall non-tender, lungs clear Cardiovascular: normal peripheral pulses, normal rate Genitourinary: normal external genitalia Extremities: no clubbing 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, abnormal gait Microbiology Date/Time Source Procedure Growth Status 08/23/17 06:10 Blood Blood Culture - Preliminary NO GROWTH AFTER 24 HOURS Resulted 08/23/17 05:55 Blood Blood Culture - Preliminary Staphylococcus Aureus Resulted Laboratory Tests 08/25/17 05:15: White Blood Count 16.2H, Red Blood Count 3.47L, Hemoglobin 10.9L, Hematocrit 32.3L, Mean Corpuscular Volume 93, Mean Corpuscular Hemoglobin 31.4H, Mean Corpuscular Hemoglobin Concent 33.7, Red Cell Distribution Width 13.3, Platelet Count 267, Mean Platelet Volume 7.8, Neutrophils (%) (Auto) 75.4H, Lymphocytes ( %) (Auto) 14.8L, Monocytes (%) (Auto) 8.0, Eosinophils (%) (Auto) 0.9, Basophils (%) (Auto) 0.9, Sodium Level 136, Potassium Level 3.4L, Chloride Level 102, Carbon Dioxide Level 25, Anion Gap 9, Blood Urea Nitrogen 21H, Creatinine 1.4H, Estimat Glomerular Filtration Rate > 60, Glucose Level 81, Calcium Level 9.3, Total Bilirubin 0.7, Aspartate Amino Transf (AST/SGOT) 54H, Alanine Aminotransferase (ALT/SGPT) 62, Alkaline Phosphatase 113, Total Creatine Kinase 235, Total Protein 7.6, Albumin 2.9L, Globulin 4.7, Albumin/ Globulin Ratio 0.6L Current Medications Medications (Trade) Dose Ordered Sig/Iliana Route PRN Reason Start Time Stop Time Status Last Admin Dose Admin Acetaminophen (Tylenol) 650 mg Q4H PRN ORAL fever 08/21/17 16:30 09/20/17 16:29 08/24/17 11:37 Acetaminophen/ Hydrocodone Bitart ([place] 5/325) 1 tab Q6H PRN ORAL Mild Pain (1-3) 08/21/17 16:30 08/28/17 16:29 08/25/17 17:26 Albuterol/ Ipratropium (Albuterol/ Ipratropium) 3 ml Q4H PRN HHN Shortness of Breath 08/21/17 16:30 08/26/17 16:29 Daptomycin 850 mg/ Sodium Chloride 55 ml @ 100 mls/hr Q24H IV 08/24/17 18:00 08/31/17 17:59 08/25/17 18:12 Gabapentin (Neurontin) 400 mg TWICE A DAY ORAL 08/21/17 18:00 09/20/17 17:59 08/25/17 17:26 Heparin Sodium (Porcine) (Heparin 5000 units/ml) 5,000 units EVERY 12 HOURS SUBQ 08/21/17 21:00 09/20/17 20:59 08/25/17 09:09 Morphine Sulfate (Morphine Sulfate) 2 mg Q4H PRN IVP Moderate Pain (Pain Scale 4-6) 08/21/17 16:30 08/28/17 16:29 08/22/17 11:25 Nitroglycerin (Ntg) 0.4 mg Every 5 Minutes PRN SL Prn Chest Pain 08/21/17 16:30 09/20/17 16:29 Ondansetron HCl (Zofran) 4 mg Q6H PRN IVP Nausea & Vomiting 08/21/17 16:30 09/20/17 16:29 Polyethylene Glycol (Miralax) 17 gm DAILYPRN PRN ORAL Constipation 08/21/17 16:30 09/20/17 16:29 08/25/17 12:33 Temazepam (Restoril) 15 mg HSPRN PRN ORAL Insomnia 08/21/17 16:30 08/28/17 16:29 08/25/17 00:34 BENJY KUMARI Aug 25, 2017 18:45
--- NOTE | 2017-08-25 23:45 | General Progress Note ---
Assessment/Plan Assessment/Plan 1. Deep venous thrombosis of the right lower extremity. --> The patient at this time is on heparin subcutaneously doses. --> Most recent scan in 2016 negative for DVT. --> Venous duplex lower ext pending. --> INR goal b/t 2 and 3. 2. Leukocytosis, likely secondary to Gram-positive bacteremia, --> currently on broad-spectrum antibiotics. --> Continues to improve --> Trend cbc daily. 3. Right ankle fracture, status post repair. --> S/P bone scan revealing abnormal blood flow in right lower ext. Concern for acute osteomyelitis and infection. 4. Polyneuropathy. 5. Fever, likely related to underlying sepsis. --> Continue to closely monitor. Subjective Date patient seen: Aug 25, 2017 Constitutional: Denies: no symptoms, chills, diaphoresis, fever, malaise, weakness, other HEENT: Denies: no symptoms, eye pain, blurred vision, tearing, double vision, ear pain, ear discharge, nose pain, nose congestion, throat pain, throat swelling, mouth pain, mouth swelling, other Cardiovascular: Denies: no symptoms, chest pain, edema, irregular heart rate, lightheadedness, palpitations, syncope, other Respiratory: Denies: no symptoms, cough, orthopnea, shortness of breath, SOB with excertion, SOB at rest, sputum, stridor, wheezing, other Gastrointestinal/Abdominal: Denies: no symptoms, abdomen distended, abdominal pain, black stools, tarry stools, blood in stool, constipated, diarrhea, difficulty swallowing, nausea, poor appetite, poor fluid intake, rectal bleeding , vomiting, other Genitourinary: Denies: no symptoms, burning, discharge, frequency, flank pain, hematuria, incontinence, pain, urgency, other Allergies: Coded Allergies: No Known Allergies (Unverified , 12/24/15) Subjective Leukocytosis continues to improve. Pending venous duplex. Objective Last 24 Hour Vital Signs Date Time Temp Pulse Resp B/P (MAP) Pulse Ox O2 Delivery O2 Flow Rate FiO2 08/25/17 19:24 78 18 Room Air 21 08/25/17 18:25 98.4 08/25/17 16:09 98.4 85 20 129/78 96 08/25/17 14:19 89 18 Room Air 21 08/25/17 12:00 97.7 82 20 119/76 95 08/25/17 08:59 97.7 72 20 114/71 96 08/25/17 04:00 98.1 77 19 123/77 96 08/24/17 23:56 97.6 79 19 123/68 97 Intake and Output 08/24/17 08/25/17 19:00 07:00 Intake Total 180 ml 240 ml Output Total 800 ml 400 ml Balance -620 ml -160 ml Intake Oral 180 ml 240 ml Output Urine Total 800 ml 400 ml Laboratory Tests 08/25/17 05:15: White Blood Count 16.2H, Red Blood Count 3.47L, Hemoglobin 10.9L, Hematocrit 32.3L, Mean Corpuscular Volume 93, Mean Corpuscular Hemoglobin 31.4H, Mean Corpuscular Hemoglobin Concent 33.7, Red Cell Distribution Width 13.3, Platelet Count 267, Mean Platelet Volume 7.8, Neutrophils (%) (Auto) 75.4H, Lymphocytes ( %) (Auto) 14.8L, Monocytes (%) (Auto) 8.0, Eosinophils (%) (Auto) 0.9, Basophils (%) (Auto) 0.9, Sodium Level 136, Potassium Level 3.4L, Chloride Level 102, Carbon Dioxide Level 25, Anion Gap 9, Blood Urea Nitrogen 21H, Creatinine 1.4H, Estimat Glomerular Filtration Rate > 60, Glucose Level 81, Calcium Level 9.3, Total Bilirubin 0.7, Aspartate Amino Transf (AST/SGOT) 54H, Alanine Aminotransferase (ALT/SGPT) 62, Alkaline Phosphatase 113, Total Creatine Kinase 235, Total Protein 7.6, Albumin 2.9L, Globulin 4.7, Albumin/ Globulin Ratio 0.6L Height (Feet): 5 Height (Inches): 9.00 Weight (Pounds): 234 Benedicto Rutherford Aug 25, 2017 23:45
[2017-08-26] VITALS: BP 122/69
[2017-08-26 04:00] VITALS: BP 126/76
[2017-08-26 08:00] VITALS: BP 137/82
[2017-08-26] MEDS: Heparin 5000 units/ml inj SUBQ SCH ×2 (08:57→21:27)
[2017-08-26] MEDS: Norco 5mg/325mg tab ORAL PRN ×2 (09:08→15:42)
--- NOTE | 2017-08-26 09:53 | Infectious Diseases Prog Note ---
Assessment/Plan Assessment/Plan Assessment: Sepsis 2ry to MRSA bacteremia 2ry from infected hardware and OM- r/o OM, r/o endocarditis -2/ Bcx /4 MRSA (S Vanco cory 1, tetracycline, bactrim, rifampin); / Bcx 1/ 2 + -Echo: no obvious vegetation: -Bone scan: Markedly abnormal flow, blood pool, and static activity predominantly involving the distal right tibia and talus but also to some extent the proximal tibia. Findings are concerning for acute osteomyelitis and presumably associated hardware infection, particularly in view of the abnormal plain radiographic findings R ankle pain, ankle fx s/p repair~2yrs ago -xray R ankle: Post surgical changes, as described. Extensive abnormality of the distal tibia, with marked osteoporotic change, persistent fracture lines in possible bone loss. 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 There are multiple screw holes within the metatarsals. Correlate with clinical findings. Associated incompletely united distal fibular fracture. Evidence of prior foot surgery Fever, SP leukocytosis improving Plan: -Daptomycin d# 2 ( 8mg/kg qd) for MRSA bacteremia and hardware infection given patient not cooperating with blood draws and difficult to monitor vanco levels and Cr 2/ SP IV Vancomycin #4 -/6 SP Cefepime #3 -2/ SP Flagyl x1 -Ortho evaluation- -will need hardware removal given bacteremia -- possible transfer to [facility] where hardware was implanted. -f/u cx ( Blood ) -Monitor CBC/BMP,,CK Subjective Constitutional: Denies: no symptoms, fever, chills, fatigue, anorexia, drenching sweats, other Allergies: Coded Allergies: No Known Allergies (Unverified , 12/24/15) Objective Vital Signs Last 24 Hour Vital Signs Date Time Temp Pulse Resp B/P (MAP) Pulse Ox O2 Delivery O2 Flow Rate FiO2 08/26/17 08:00 98.2 79 18 137/82 97 08/26/17 04:00 98.0 81 18 126/76 97 Room Air 08/26/17 00:00 99.0 80 19 122/69 96 Room Air 08/25/17 19:24 78 18 Room Air 21 08/25/17 18:25 98.4 08/25/17 16:09 98.4 85 20 129/78 96 08/25/17 14:19 89 18 Room Air 21 08/25/17 12:00 97.7 82 20 119/76 95 Height (Feet): 5 Height (Inches): 9.00 Weight (Pounds): 234 HEENT: mucous membranes moist Respiratory/Chest: normal breath sounds Cardiovascular: regularly irregular Abdomen: no organomegaly Current Medications Medications (Trade) Dose Ordered Sig/Iliana Route PRN Reason Start Time Stop Time Status Last Admin Dose Admin Acetaminophen (Tylenol) 650 mg Q4H PRN ORAL fever 08/21/17 16:30 09/20/17 16:29 08/24/17 11:37 Acetaminophen/ Hydrocodone Bitart ([place] 5/325) 1 tab Q6H PRN ORAL Mild Pain (1-3) 08/21/17 16:30 08/28/17 16:29 08/26/17 09:08 Albuterol/ Ipratropium (Albuterol/ Ipratropium) 3 ml Q4H PRN HHN Shortness of Breath 08/21/17 16:30 08/26/17 16:29 Daptomycin 850 mg/ Sodium Chloride 55 ml @ 100 mls/hr Q24H IV 08/24/17 18:00 08/31/17 17:59 08/25/17 18:12 Gabapentin (Neurontin) 400 mg TWICE A DAY ORAL 08/21/17 18:00 09/20/17 17:59 08/26/17 08:56 Heparin Sodium (Porcine) (Heparin 5000 units/ml) 5,000 units EVERY 12 HOURS SUBQ 08/21/17 21:00 09/20/17 20:59 08/26/17 08:57 Morphine Sulfate (Morphine Sulfate) 2 mg Q4H PRN IVP Moderate Pain (Pain Scale 4-6) 08/21/17 16:30 08/28/17 16:29 08/22/17 11:25 Nitroglycerin (Ntg) 0.4 mg Every 5 Minutes PRN SL Prn Chest Pain 08/21/17 16:30 09/20/17 16:29 Ondansetron HCl (Zofran) 4 mg Q6H PRN IVP Nausea & Vomiting 08/21/17 16:30 09/20/17 16:29 Polyethylene Glycol (Miralax) 17 gm DAILYPRN PRN ORAL Constipation 08/21/17 16:30 09/20/17 16:29 08/25/17 12:33 Temazepam (Restoril) 15 mg HSPRN PRN ORAL Insomnia 08/21/17 16:30 08/28/17 16:29 08/25/17 00:34 KEYUR OSORIO M.D. Aug 26, 2017 09:53
[2017-08-26 12:35] VITALS: BP 117/68
[2017-08-26] MEDS: Morphine Sulfate 4mg/ml Inj IVP PRN ×2 (12:41→18:06)
[2017-08-26 15:33] VITALS: BP 114/73
[2017-08-26] MEDS: DAPTOMYCIN IV SCH (18:06)
[2017-08-26] MEDS: NS IV SCH (18:06)
[2017-08-26] MEDS ORDERED: DAPTOMYCIN500 MG IV ×2 (18:15→18:20)
[2017-08-26] MEDS ORDERED: HEPARIN SO5000 UNIT2 SUBQ (18:21)
[2017-08-26 20:00] VITALS: BP 115/68
--- NOTE | 2017-08-26 22:59 | Pulmonology Progress Note ---
Assessment/Plan Problems: (1) Sepsis (2) Cellulitis (3) Leukocytosis (4) DVT (deep venous thrombosis) Assessment/Plan iv abx check cultures bone scan in process ortho called, hematology to see for hx of dvt no new complains, waiting to be transferred to discussed with the [facility] team taking care of the patient. He needs to be transferred to [facility] for evaluation by his orthopedis. pt will be dishcarged to [facility] and afterwards, he arrange the transfer to [facility]. Subjective ROS Limited/Unobtainable: Yes Allergies: Coded Allergies: No Known Allergies (Unverified , 12/24/15) Objective Last 24 Hour Vital Signs Date Time Temp Pulse Resp B/P (MAP) Pulse Ox O2 Delivery O2 Flow Rate FiO2 08/26/17 20:00 98.1 75 19 115/68 94 Room Air 08/26/17 19:44 76 18 Room Air 21 08/26/17 15:33 98.2 74 20 114/73 95 08/26/17 14:55 72 18 Room Air 21 08/26/17 12:35 97.9 70 20 117/68 97 08/26/17 08:00 98.2 79 18 137/82 97 08/26/17 04:00 98.0 81 18 126/76 97 Room Air 08/26/17 00:00 99.0 80 19 122/69 96 Room Air Intake and Output 08/25/17 08/26/17 19:00 07:00 Intake Total 180 ml Output Total 800 ml Balance -620 ml Intake Oral 180 ml Output Urine Total 800 ml # Voids 2 # Bowel Movements 1 Objective General Appearance: WD/WN HEENT: normocephalic, atraumatic Respiratory/Chest: chest wall non-tender, lungs clear Cardiovascular: normal peripheral pulses, normal rate Genitourinary: normal external genitalia Extremities: no clubbing 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, abnormal gait Current Medications Medications (Trade) Dose Ordered Sig/Iliana Route PRN Reason Start Time Stop Time Status Last Admin Dose Admin Acetaminophen (Tylenol) 650 mg Q4H PRN ORAL fever 08/21/17 16:30 09/20/17 16:29 08/24/17 11:37 Acetaminophen/ Hydrocodone Bitart ([place] 5/325) 1 tab Q6H PRN ORAL Mild Pain (1-3) 08/21/17 16:30 08/28/17 16:29 08/26/17 15:42 Daptomycin 850 mg/ Sodium Chloride 55 ml @ 100 mls/hr Q24H IV 08/24/17 18:00 08/31/17 17:59 08/26/17 18:06 Gabapentin (Neurontin) 400 mg TWICE A DAY ORAL 08/21/17 18:00 09/20/17 17:59 08/26/17 18:06 Heparin Sodium (Porcine) (Heparin 5000 units/ml) 5,000 units EVERY 12 HOURS SUBQ 08/21/17 21:00 09/20/17 20:59 08/26/17 21:27 Morphine Sulfate (Morphine Sulfate) 2 mg Q4H PRN IVP Moderate Pain (Pain Scale 4-6) 08/21/17 16:30 08/28/17 16:29 08/26/17 18:06 Nitroglycerin (Ntg) 0.4 mg Every 5 Minutes PRN SL Prn Chest Pain 08/21/17 16:30 09/20/17 16:29 Ondansetron HCl (Zofran) 4 mg Q6H PRN IVP Nausea & Vomiting 08/21/17 16:30 09/20/17 16:29 Polyethylene Glycol (Miralax) 17 gm DAILYPRN PRN ORAL Constipation 08/21/17 16:30 09/20/17 16:29 08/25/17 12:33 Temazepam (Restoril) 15 mg HSPRN PRN ORAL Insomnia 08/21/17 16:30 08/28/17 16:29 08/25/17 00:34 BENJY KUMARI Aug 26, 2017 22:59
--- NOTE | 2017-08-26 23:49 | General Progress Note ---
Assessment/Plan Assessment/Plan #. Deep venous thrombosis of the right lower extremity. --> The patient at this time is on heparin subcutaneously doses. --> Most recent scan in 2016 negative for DVT. --> Venous duplex lower ext pending. --> INR goal b/t 2 and 3. --> Monitor closely. #. Leukocytosis, likely secondary to Gram-positive bacteremia, --> currently on broad-spectrum antibiotics. --> Continues to improve --> Trend cbc daily. #. Right ankle fracture, status post repair. --> S/P bone scan revealing abnormal blood flow in right lower ext. Concern for acute osteomyelitis and infection. #. Polyneuropathy. #. Fever, likely related to underlying sepsis. --> Continue to closely monitor. Subjective Date patient seen: Aug 26, 2017 Constitutional: Denies: no symptoms, chills, diaphoresis, fever, malaise, weakness, other HEENT: Denies: no symptoms, eye pain, blurred vision, tearing, double vision, ear pain, ear discharge, nose pain, nose congestion, throat pain, throat swelling, mouth pain, mouth swelling, other Cardiovascular: Denies: no symptoms, chest pain, edema, irregular heart rate, lightheadedness, palpitations, syncope, other Respiratory: Denies: no symptoms, cough, orthopnea, shortness of breath, SOB with excertion, SOB at rest, sputum, stridor, wheezing, other Gastrointestinal/Abdominal: Denies: no symptoms, abdomen distended, abdominal pain, black stools, tarry stools, blood in stool, constipated, diarrhea, difficulty swallowing, nausea, poor appetite, poor fluid intake, rectal bleeding , vomiting, other Allergies: Coded Allergies: No Known Allergies (Unverified , 12/24/15) Subjective Leukocytosis continues to improve. NAD. Pending dc. Objective Last 24 Hour Vital Signs Date Time Temp Pulse Resp B/P (MAP) Pulse Ox O2 Delivery O2 Flow Rate FiO2 08/26/17 20:00 98.1 75 19 115/68 94 Room Air 08/26/17 19:44 76 18 Room Air 21 08/26/17 15:33 98.2 74 20 114/73 95 08/26/17 14:55 72 18 Room Air 21 08/26/17 12:35 97.9 70 20 117/68 97 08/26/17 08:00 98.2 79 18 137/82 97 08/26/17 04:00 98.0 81 18 126/76 97 Room Air 08/26/17 00:00 99.0 80 19 122/69 96 Room Air Intake and Output 08/25/17 08/26/17 19:00 07:00 Intake Total 180 ml Output Total 800 ml Balance -620 ml Intake Oral 180 ml Output Urine Total 800 ml # Voids 2 # Bowel Movements 1 Height (Feet): 5 Height (Inches): 9.00 Weight (Pounds): 234 General Appearance: no apparent distress Respiratory/Chest: decreased breath sounds Abdomen: non tender Benedicto Rutherford Aug 26, 2017 23:49
--- NOTE | 2017-08-29 09:51 | Discharge Summary ---
Discharge Summary Hospital Course Date of Admission Aug 21, 2017 at 13:42 Date of Discharge Aug 26, 2017 at 22:40 Admitting Diagnosis Sepsis HPI Jordan Cortez is a 67 year old male who was admitted on Aug 21, 2017 at 13:42 for Sepsis Hospital Course dc summary#[id number] Discharge Medications Continued Medications: DAPTOmycin (DAPTOmycin) 500 Mg Vial 500 MG IV for until surgery, VIAL Gabapentin* (Gabapentin*) 400 Mg Capsule 400 MG ORAL TWICE A DAY, CAP 0 Refills Heparin Sod (Porcine) (Heparin Sodium*) 5 000/1 Ml Vial 5000 UNITS SUBQ EVERY 12 HOURS, VIAL Discharge Condition Upon Discharge: stable Discharge Disposition Patient was discharged to SNF/Subacute Facility(03) Discharge Diagnoses: Discharge Instructions Discharge Instructions Special Instructions I have been assigned to complete a D/C Summary on this account. I was not involved in the patient management Daksha Prado NP (Vanchtein) Aug 29, 2017 09:51
--- NOTE | 2017-08-30 01:45 | Discharge Summary 2 SIG ---
DATE OF ADMISSION: 08/21/2017 DATE OF DISCHARGE: 08/26/2017 REASON FOR ADMISSION: 67-year-old male with history of DVT, polyneuropathy, right ankle fracture, status post surgery, presented with fever. The patient had a severe right ankle pain, status post titanium placement for ankle fracture, and history of cellulitis right lower extremity in the past. Chest x-ray revealed no acute cardiopulmonary pathology. WBC- 23.1. EKG revealed no acute ischemic changes. Troponin negative. Lactate within normal limits. ESR -43. Evidence of renal insufficiency with BUN -26 and creatinine -1.5. Urinalysis, no evidence of UTI. X ray of right ankle showed postsurgical changes, distal tibia with marked osteoporotic change, persistent fracture lines and possible bone loss associated with incompletely united distal fibular fracture. Postsurgical changes with nonunion and disuse osteoporosis versus underlying obstructive process such as osteomyelitis. The patient was admitted with a diagnosis of sepsis, leukocytosis, rule out osteomyelitis right ankle. HOSPITAL COURSE: The patient admitted. ID and Ortho consults were requested. The patient initially with leukocytosis and fever. Blood culture revealed MRSA. Urine culture was negative. Sputum culture was negative. Influenza screen test was negative. Repeated blood culture again revealed 1 out of 4 MRSA and surveillance blood culture on 08/25/2017 were negative. Echocardiogram revealed no evidence of vegetation, showed preserved ejection fracture of 60% to 65%. Bone scan subsequently revealed findings concerning for acute osteomyelitis and presumably associated hardware infection. According to Orthopedic Surgeon, surgery was done at the [facility]. The patient needs removal of the infected hardware. The patient needs further evaluation by Dr. Allen, who performed the initial surgery. The patient was on IV antibiotics as per ID management.. Pain management provided. DVT prophylaxis provided. The patient was on the waiting list to be transferred to [facility]. [employer] Supervisor's consult was requested due to history of DVT right lower extremity. Per cost and risk analysis manager, continue DVT prophylaxis. Most recent venous duplex in 2016 was negative for DVT. Gabapentin was continued for polyneuropathy. Unable to transfer the patient to [facility]. Leukocytosis was trending down. The patient was afebrile. The patient was cleared for discharge to senior living facility on IV daptomycin and arrange outpatient followup with Dr. Allen for evaluation and further management. FINAL DIAGNOSES: 1. Sepsis secondary to methicillin-resistant Staphylococcus aureus bacteremia due to the infected hardware. 2. Acute osteomyelitis. 3. Right ankle pain. 4. Polyneuropathy. 5. History of ankle fracture, status post repair with talotibial fusion. 6. History of deep vein thrombosis, right lower extremity. 7. History of cellulitis, right lower extremity. DISCHARGE MEDICATIONS: See medication reconciliation list. DISCHARGE INSTRUCTIONS: The patient discharged to senior living facility with outpatient followup with the surgeon, Dr. Allen, at [facility]. Julianne Malloy M.D. I have been assigned to dictate discharge summary on this account and I was not involved in the patient's management. Daksha Prado (Vanchtein) N.P. DR: SEMAJ JOB#: [id number] CC: MANDEEP
== END 2017-08-26 22:40 | DRG 559 ==
LOC: EDBD 12:01 → EMR 12:36 → 4W 13:42 → EDBEDREQ 14:16
DX: T84.69XA Infection and inflammatory reaction due to internal fixation device of other site, initial encounter (principal); A41.02 Sepsis due to Methicillin resistant Staphylococcus aureus; M86.171 Other acute osteomyelitis, right ankle and foot; L03.115 Cellulitis of right lower limb; I82.501 Chronic embolism and thrombosis of unspecified deep veins of right lower extremity; G62.9 Polyneuropathy, unspecified
CPT/HCPCS: 36415; 71045; 76775; 78315; 80053; 80202; 81001; 81003; 82248; 82550; 83605; 83735; 83880; 84100; 84133; 84300; 84484; 84550; 85007; 85025; 85610; 85651; 85730; 86140; 86710; 87040; 87070; 87081; 87086; 87181; 87205; 89050; 93005; 93306; 94664; 99285; J2405; J8499

== ENCOUNTER 2020-01-23 13:01 | Outpatient (CLI) | payer MEDICARE, MEDICAID ==
[~2020-01-23] VITALS: Ht 175.3 cm; Wt 95.7 kg
[~2020-01-23 13:01] MED LIST changes: +DAPTOMYCIN500 MG IV; +HEPARIN SO5000 UNIT2 SUBQ
[2020-01-23 15:46] VITALS: BP 138/78
--- NOTE | 2020-01-23 20:45 | Consultation ---
DATE OF CONSULTATION: 01/23/2020 CONSULTING PHYSICIAN: Duran Hunter MD. REFERRING PHYSICIAN: Stuart Figueroa MD. CHIEF COMPLAINT: Iron-deficiency anemia. HISTORY OF PRESENT ILLNESS: This is a very pleasant 69-year-old male, who currently lives in a rehab. Apparently he is pending amputation of his right leg because of peripheral vascular disease. The patient was found to be anemic and never had a colonoscopy before, so he was referred for endoscopy and colonoscopy. PAST MEDICAL HISTORY: 1. Osteomyelitis. 2. Hypercholesterolemia. 3. Prostate cancer. 4. Pancreatitis. 5. GERD. 6. Anemia. PAST SURGICAL HISTORY: Right ankle surgery and left hernia repair. MEDICATIONS: Please see medication reconciliation list. The patient currently on Xarelto for DVT. FAMILY HISTORY: Noncontributory. SOCIAL HISTORY: The patient smokes and drinks. Denies any IV drug abuse. ALLERGIES: No known drug allergies. REVIEW OF SYSTEMS: Positive for GERD. PHYSICAL EXAMINATION: GENERAL: A well-developed male, in no acute distress. VITAL SIGNS: Temperature 96.8, blood pressure 130/78, pulse is 88, respirations 20. HEENT: Normocephalic and atraumatic. Sclerae anicteric. NECK: Supple. No evidence of obvious lymphadenopathy. CARDIOVASCULAR: Regular rate and rhythm. Plus S1, S2. LUNGS: Clear to auscultation bilaterally. ABDOMEN: Positive bowel sounds. Soft and nontender. No rebound. No guarding. No peritoneal sign. EXTREMITIES: No cyanosis. The patient has evidence of edema. Right leg is also covered by bandage. ASSESSMENT AND PLAN: This is a 69-year-old male with need for screening colonoscopy. With anemia, he needs also endoscopy. Xarelto has to be stopped two days prior to the procedure. We will try to schedule the patient for endoscopy and colonoscopy. The prep was explained to the patient. Procedure was explained to the patient. We are going to try to schedule it. I want to thank, Dr. Stuart Figueroa, for this kind referral. Duran Hunter M.D. DR: Linwood JOB#: [id number] CC: Stuart Figueroa MD; Fax#: [phone]
[2020-02-11] MEDS ORDERED: XARELTO10 MG ORAL (13:04)
[2020-02-11] MEDS ORDERED: GEMFIBROZIL600 MG ORAL (13:04)
[2020-02-11] MEDS ORDERED: LORATADINE10 M2 PO (13:04)
[2020-02-11] MEDS ORDERED: COLACE100 MG ORAL (13:04)
[2020-02-11] MEDS ORDERED: LUPRON DEPOT7.5 MG IM (13:04)
[2020-02-11] MEDS ORDERED: ACETAMINOPHEN325 M1 ORAL (13:04)
[2020-02-11] MEDS ORDERED: FLOMAX0.4 MG ORAL (13:04)
[2020-02-11] MEDS ORDERED: FERROUS SULFAT325 MG ORAL (13:04)
[2020-02-11] MEDS ORDERED: PRO-STAT LIQUID30 ML ORAL (13:04)
[2020-02-11] MEDS ORDERED: GABAPENTIN400 MG ORAL (13:04)
== END 2020-01-23 15:01 | disposition home or self-care (01) ==
LOC: PAN 13:01
DX: D50.9 Iron deficiency anemia, unspecified (principal); E78.00 Pure hypercholesterolemia, unspecified; K21.9 Gastro-esophageal reflux disease without esophagitis; I73.9 Peripheral vascular disease, unspecified; Z85.46 Personal history of malignant neoplasm of prostate; Z79.01 Long term (current) use of anticoagulants
CPT/HCPCS: G0463

== ENCOUNTER 2020-02-13 08:35 | Day surgery (SDC) | payer MEDICARE, MEDICAID ==
[~2020-02-13] VITALS: Ht 175.3 cm; Wt 97.1 kg
[2020-02-13] VITALS (8 sets, daily range): BP systolic 99–135; BP diastolic 62–81
[~2020-02-13 08:35] MED LIST changes: +ACETAMINOPHEN325 M1 ORAL; +COLACE100 MG ORAL; +FERROUS SULFAT325 MG ORAL; +FLOMAX0.4 MG ORAL; +GEMFIBROZIL600 MG ORAL; +LORATADINE10 M2 PO; +LUPRON DEPOT7.5 MG IM; +PRO-STAT LIQUID30 ML ORAL; +XARELTO10 MG ORAL
[2020-02-13] MEDS ORDERED: LR 1000ml 1,000 ML IVLG SCH ×2 (09:00→11:14)
[2020-02-13] MEDS ORDERED: LR 1000ml ONE (11:00)
[2020-02-13] MEDS ORDERED: Lidocaine 1% MPF 10mg/ml 5ml ONE (11:00)
--- NOTE | 2020-02-13 11:12 | Short Stay Surgery H&P ---
History of Present Illness History of Present Illness Chief Complaint see office note HPI Jordan Cortez is a 69 year old male who was admitted on for Gerd,Weight Loss ,Anemia Patient History Allergies: Coded Allergies: No Known Allergies (Unverified , 12/24/15) Medication History Scheduled Amino Acids/Protein Hydrolys (Pro-Stat Liquid), 30 ML ORAL DAILY, (Reported) Docusate Sodium* (Colace*), 250 MG ORAL DAILY, (Reported) Ferrous Sulfate* (Ferrous Sulfate*), 325 MG ORAL TWICE A DAY, (Reported) Gabapentin* (Gabapentin*), 400 MG ORAL BID, (Reported) Gemfibrozil (Gemfibrozil*), 600 MG ORAL BID, (Reported) Leuprolide Acetate (Lupron Depot), 7.5 MG IM q month, (Reported) Loratadine (Loratadine), 10 MG PO DAILY, (Reported) Melatonin (Melatonin), 3 MG PO BEDTIME, (Reported) Rivaroxaban (Xarelto*), 20 MG ORAL DAILY, (Reported) Tamsulosin HCl (Flomax), 0.4 MG ORAL DAILY, (Reported) Scheduled PRN Acetaminophen* (Acetaminophen 325MG Tablet*), 650 MG ORAL Q4H PRN for For Pain, (Reported) Hydrocodone Bit/Acetaminophen 5-325* ([place] 5-325*), 1 TAB ORAL Q6H PRN for For Pain, (Reported) Discontinued Medications Aspirin* (Aspirin*), 325 MG ORAL DAILY, (Reported) Discontinued Reason: Pt stopped taking med DAPTOmycin (DAPTOmycin), 500 MG IV q24, (Reported) Discontinued Reason: Therapy completed DAPTOmycin (DAPTOmycin), 500 MG IV, (Reported) Discontinued Reason: Therapy completed Enoxaparin* (Lovenox*), 40 MG SUBQ DAILY, (Reported) Discontinued Reason: Therapy completed Heparin Sod (Porcine) (Heparin Sodium*), 5,000 UNITS SUBQ EVERY 12 HOURS, ( Reported) Discontinued Reason: Therapy completed Ibuprofen* (Motrin*), 800 MG ORAL EVERY 4 HOURS, (Reported) Discontinued Reason: Pt stopped taking med [id number],Iso (Zosyn 3.375 Gm Pre Mix-Bag), 3.375 GM IVPB EVERY 8 HOURS Discontinued Reason: Therapy completed Vancomycin/0.9 % Sod Chloride (Vanco 1.25 gm/250 ml-0.9% NaCl), 1.25 GM IV EVERY 12 HOURS Discontinued Reason: Therapy completed Physical Exam Vital Signs Last Vital Signs Date Time Temp Pulse Resp B/P (MAP) Pulse Ox O2 Delivery O2 Flow Rate FiO2 02/13/20 10:12 Room Air 02/13/20 08:50 96.8 85 16 106/70 96 Plan Attestation Are the patient's medical conditions optimized for surgery? Duran Hunter MD Feb 13, 2020 11:12
--- NOTE | 2020-02-13 11:12 | Pre-Procedure Note/Attestation ---
Pre-Procedure Note/Attestation Complete Prior to Procedure Planned Procedure: not applicable Procedure Narrative: esophagogastroduodenoscopy colonoscopy, Indications for Procedure Pre-Operative Diagnosis: screening colon, GERD Attestation I attest that I discussed the nature of the procedure; its benefits; risks and complications; and alternatives (and the risks and benefits of such alternatives ), prior to the procedure, with the patient (or the patient's legal sales support representative). I attest that, if there was a reasonable possibility of needing a blood transfusion, the patient (or the patient's legal sales support representative) was given the [facility] standardized written summary, pursuant to the Adolfo Arden Blood Safety Act ([place] Health and Safety Code # 1645, as amended). I attest that I re-evaluated the patient just prior to the surgery and that there has been no change in the patient's H&P, except as documented below: Duran Hunter MD Feb 13, 2020 11:12
[2020-02-13] MEDS ORDERED: DiphenhydrAMINE 50mg/ml Inj IVP PRN (11:15)
[2020-02-13] MEDS ORDERED: fentaNYL 100 mcg/2 mL IV PRN (11:15)
[2020-02-13] MEDS ORDERED: Atropine Inj 1mg/10ml Syr IV PRN (11:15)
[2020-02-13] MEDS ORDERED: Midazolam 2mg/2ml Inj IVP PRN (11:15)
--- NOTE | 2020-02-13 11:31 | Anethesia Preoperative Eval ---
Anesthesia Pre-op PMH/ROS General Date of Evaluation: Feb 13, 2020 Time of Evaluation: 11:02 Anesthesiologist: willy ASA Score: ASA 3 Mallampati Score Class I : Soft palate, uvula, fauces, pillars visible Class II: Soft palate, uvula, fauces visible Class III: Soft palate, base of uvula visible Class IV: Only hard plate visible Mallampati Classification: Class II Surgeon: angelo Diagnosis: gerd/colon screening Surgical Procedure: egd/colonoscopy Anesthesia History: none Social History: current smoker, alcohol use Family History: no anesthesia problems Allergies: Coded Allergies: No Known Allergies (Unverified , 12/24/15) Medications: see eMAR Patient NPO?: Yes Past Medical History Gastrointestinal/Genitourinary: Reports: GERD, other - prostate cancer, pancreatitis, Neurologic/Psychiatric: Reports: other - peripheral neuropathy Hematology/Immune: Reports: DVT Musculoskeletal/Integumentary: Reports: other - back pain, osteomyelitis, cellulitis PSxH Narrative: right inguinal herniorrhaphy Anesthesia Pre-op Phys. Exam Physician Exam Last Vital Signs Date Time Temp Pulse Resp B/P (MAP) Pulse Ox O2 Delivery O2 Flow Rate FiO2 02/13/20 10:12 Room Air 02/13/20 08:50 96.8 85 16 106/70 96 Constitutional: NAD Neurologic: CN 2-12 intact Cardiovascular: RRR Respiratory: CTA Gastrointestinal: S/NT/ND Airway Exam Mallampati Score: Class II MO: limited Neck: flexible TMD: 2fb ROM: limited Teeth: missing Anesthesia Pre-op A/P Labs Microbiology Date/Time Source Procedure Growth Status 02/11/20 10:20 Nasopharynx SARS-CoV-2 RdRp Gene Assay - Final Complete Risk Assessment & Plan Assessment: asa3 Plan: mac Status Change Before Surgery: No Pre-Antibiotics Drug: Verenice Gipson MD Feb 13, 2020 11:31
--- NOTE | 2020-02-13 11:47 | Endoscopy Procedure Note ---
Endoscopy Procedure Note General Indication for Procedure: anemia, weight loss Procedures Performed: EGD, colonoscopy Operative Findings/Diagnosis: gastritis, colon poly Specimen: yes Pt Tolerated Procedure Well: Yes Estimated Blood Loss: none Anesthesia Anesthesiologist: francia Anesthesia: MAC Inserted Devices Implant(s) used?: No Quality Quality of Bowel Preparation: Excellent Did scope reach the cecum?: Yes Was there any complications?: No GI Core Measures 50 yrs or older w/o bx or poly: No 10yrs. F/U recommended: Yes If not recommended, why?: Above average risk 18 years or older w/prev. colo: No Duran Hunter MD Feb 13, 2020 11:47
--- NOTE | 2020-02-13 12:06 | Immediate Post-Op Evaluation ---
Immediate Post-Op Evalulation Immediate Post-Op Evalulation Procedure: egd/colonoscopy w/bx Date of Evaluation: Feb 13, 2020 Time of Evaluation: 12:05 IV Fluids: 550ml lr Blood Products: none Estimated Blood Loss: negligible Blood Pressure Systolic: 119 Blood Pressure Diastolic: 81 Pulse Rate: 78 Respiratory Rate: 18 O2 Sat by Pulse Oximetry: 100 Temperature (Fahrenheit): 98.4 Pain Score (1-10): 0 Nausea: No Vomiting: No Complications none Patient Status: awake, reacts, patent Hydration Status: adequate Drug: Verenice Gipson MD Feb 13, 2020 12:06
--- NOTE | 2020-02-13 12:08 | 48 Hour Post Anesthesia Eval ---
Post Anesthesia Evaluation Procedure: egd/colonoscopy w/bx Date of Evaluation: Feb 13, 2020 Time of Evaluation: 12:07 Blood Pressure Systolic: 135 0: 79 Pulse Rate: 77 Respiratory Rate: 18 Temperature (Fahrenheit): 98.4 O2 Sat by Pulse Oximetry: 100 Airway: patent Nausea: No Vomiting: No Pain Intensity: 0 Hydration Status: adequate Cardiopulmonary Status: stable Mental Status/LOC: patient returned to baseline Post-Anesthesia Complications: none Follow-up care needed: N/A Verenice Little MD Feb 13, 2020 12:08
--- NOTE | 2020-02-13 15:15 | Procedure Note ---
DATE OF PROCEDURE: 02/13/2020 SURGEON: Duran Hunter MD PROCEDURE: Upper endoscopy with biopsy and colonoscopy with biopsy. ANESTHESIA: Per Dr. Thomas. INSTRUMENT: Olympus adult flexible upper endoscope and colonoscope. INDICATION: Anemia, weight loss. REASON FOR PROCEDURE: The procedure, risks, benefits, and possible consequences, including hemorrhage, aspiration, perforation and infection, and alternative treatments, were explained to the patient/legal guardian by Dr. Duran Hunter and the patient/legal guardian understood and accepted these risks. DESCRIPTION OF PROCEDURE: After informed consent was obtained and the patient was adequately sedated, Olympus upper endoscope was advanced from mouth into the second portion of the duodenum and retroflexion was performed in the stomach. The patient had multiple polypoid looking lesions in the body and antrum of the stomach. I am not sure exactly what kind of polyps they are. Some of them in the antrum had central cavitation. Biopsy from the antrum polyps and body polyps were obtained. The rest of the examination grossly within normal limits. At this time, the upper endoscope was retrieved. Patient was turned over for colonoscopy. First, rectal exam was performed, which was normal except for external hemorrhoids. Then, the scope was advanced from rectum into the cecum documented by appendix orifice, ileocecal valve, and right upper quadrant palpation. Quality of prep was good. The patient had 1 small polyp in the transverse colon, removed with the cold biopsy forceps technique. The patient also had 5 hyperplastic looking polyps in the rectosigmoid area, removed with cold biopsy forceps technique. Retroflexion in the rectum showed evidence of internal hemorrhoids. SUMMARY OF FINDINGS: 1. Multiple odd looking gastric polyps, status post biopsy. 2. Internal and external hemorrhoids. 3. Total of 6 polyps removed. See above for details. RECOMMENDATIONS: 1. Follow path and treat accordingly. 2. Repeat colonoscopy in 3 years. Duran Hunter M.D. DR: YONI JOB#: [id number] CC:
== END 2020-02-13 13:20 | disposition home or self-care (01) ==
LOC: GAS 08:35
DX: D64.9 Anemia, unspecified (principal); R63.4 Abnormal weight loss; K63.5 Polyp of colon; K64.8 Other hemorrhoids; K31.7 Polyp of stomach and duodenum; Z79.899 Other long term (current) drug therapy; K21.9 Gastro-esophageal reflux disease without esophagitis; Z85.46 Personal history of malignant neoplasm of prostate; Z86.718 Personal history of other venous thrombosis and embolism; F17.200 Nicotine dependence, unspecified, uncomplicated
CPT/HCPCS: 43239; 45380; 94003; J2704; J7120; U0002; 94150